=== PATIENT | male | born 1945 | race Caucasian/White ===

== ENCOUNTER 2016-09-17 20:08 | Emergency (ER) | payer MEDICARE ==
[~2016-09-17] VITALS: Ht 175.2 cm; Wt 108.0 kg
[~2016-09-17 20:08] MED LIST: ASPIRIN ADULT L81 MG PO; ASPIRIN CHILDRE81 MG PO; ASPIRIN ENTERIC81 M1 PO; ASPIRIN81 M1 PO; BLOOD PRESSURE MEDS; CLOPIDOGREL BIS75 MG PO; COREG6.25 MG PO; COZAAR100 MG PO; CRESTOR40 MG PO; DAYPRO600 M1 PO; FLEXERIL10 MG PO; GUAIFENESIN DM236 ML PO; HUMULIN R100 U/ML SC; HYDR25T PO; HYDROCODONE BIT1 T11 PO; HYDROXYYZINE PA25 MG PO; IMDUR SA30 MG PO; IMDUR SA60 MG PO; IRON324 M1 PO; ISOSORBIDE DINI30 MG PO; K-TAB10 MEQ PO; LANTUS SOLOS100 U/M1 SC; LANTUS100 U/ML SC; LIPITOR80 MG PO; LOPRESSOR100 MG PO; LOPRESSOR50 M1 PO; MECLIZINE HYD12.5 MG PO; MEDROL DOSEPAK4 MG PO; METOPROLOL SUC100 M1 PO; METOPROLOL SUCC50 M1 PO; MIRALAX POWDER17 G1 PO; MOTRIN800 MG PO; NAPROSYN500 MG PO; NORCO 5-325 TA1 EACH PO; NORFLEX100 MG PO; NOVOLOG FLEX100 U/ML; NOVOLOG FLEX100 U/ML SC; OMEPRAZOLE DR20 MG PO; OMEPRAZOLE20 M1 PO; PLAVIX75 M1 PO; PLAVIX75 MG PO; PROAIR HFA8.5 GM INH; TOBRADEX 0.1%-0.5 ML OPH; TOPROL XL100 MG PO; VICODIN 500 MG-1 TAB PO; ZANAFLEX CAPSULE4 MG PO
[2016-09-17 20:21] VITALS: BP 174/76
[2016-09-17] MEDS ORDERED: NAPROSYN500 MG PO (21:37)
== END 2016-09-17 21:44 | disposition home or self-care (01) ==
LOC: ED 20:08
DX: S70.01XA Contusion of right hip, initial encounter (principal); S20.211A Contusion of right front wall of thorax, initial encounter; R03.0 Elevated blood-pressure reading, without diagnosis of hypertension; I48.92 Unspecified atrial flutter; E11.9 Type 2 diabetes mellitus without complications; I10 Essential (primary) hypertension; Z79.82 Long term (current) use of aspirin; Z98.890 Other specified postprocedural states; Z90.89 Acquired absence of other organs; Z79.899 Other long term (current) drug therapy; W10.9XXA Fall (on) (from) unspecified stairs and steps, initial encounter; Y93.89 Activity, other specified; Y92.89 Other specified places as the place of occurrence of the external cause; Y99.9 Unspecified external cause status

== ENCOUNTER 2017-03-28 19:56 | Emergency (ER) | payer OTHER ==
[~2017-03-28] VITALS: Ht 177.8 cm; Wt 108.9 kg
[2017-03-28 20:17] VITALS: BP 209/93
[2017-03-28 20:42] LABS: BASO # 0.1 10*3/uL (0.0-0.1); BASO % 0.6 % (0.0-1.0); EOS # 0.2 10*3/uL (0.0-0.4); EOS % 2.2 % (1.0-4.0); HEMATOCRIT 46.1 % (42.0-52.0); LYMPH # 4.2 10*3/uL (1.3-4.4); LYMPH % 39.1 % (27.0-41.0); MEAN CELL VOLUME 93.3 fl (80.0-94.0); MEAN CORPUSCULAR HGB 32.4 pg (27.0-31.0); MEAN CORPUSCULAR HGB CONC 34.7 g/dl (33.0-37.0); MEAN PLATELET VOLUME 11.5 fl (9.6-12.3); MONO # 1.1 10*3/uL (0.1-1.0); MONO % 9.9 % (3.0-9.0); NEUT # 5.2 10*3/uL (2.3-7.9); NEUT % 47.7 % (47.0-73.0); PLATELET COUNT AUTOMATED 303 10*3/uL (130-400); RED BLOOD COUNT 4.94 10*6/uL (4.50-5.90); RED CELL DISTRI WIDTH 13.9 % (0-14.5); WHITE BLOOD COUNT 10.8 10*3/uL (4.8-10.8)
[2017-03-28 20:51] LABS: ACT PARTIAL THROMBO TIME 24.3 SECONDS (20.8-31.5)
[2017-03-28 21:00] LABS: CREATININE 1.55 mg/dL (0.70-1.30); POTASSIUM 3.8 mmol/L (3.5-5.1)
== END 2017-03-28 22:41 | disposition home or self-care (01) ==
LOC: ED 19:56
PROVIDERS: Emergency Medicine Emergency Medical Services
DX: S02.2XXA Fracture of nasal bones, initial encounter for closed fracture (principal); S01.112A Laceration without foreign body of left eyelid and periocular area, initial encounter; E11.9 Type 2 diabetes mellitus without complications; I16.1 Hypertensive emergency; F17.200 Nicotine dependence, unspecified, uncomplicated; Z79.899 Other long term (current) drug therapy; Z79.4 Long term (current) use of insulin; W01.198A Fall on same level from slipping, tripping and stumbling with subsequent striking against other object, initial encounter; Y93.89 Activity, other specified; Y92.89 Other specified places as the place of occurrence of the external cause; Y99.8 Other external cause status

== ENCOUNTER 2017-04-01 17:27 | Emergency (ER) | payer OTHER ==
[~2017-04-01] VITALS: Ht 177.8 cm; Wt 108.9 kg
[2017-04-01 18:00] LABS: BASO # 0.1 10*3/uL (0.0-0.1); BASO % 0.5 % (0.0-1.0); EOS # 0.2 10*3/uL (0.0-0.4); HEMATOCRIT 47.9 % (42.0-52.0); HEMOGLOBIN 16.6 g/dl (14.0-18.0); LYMPH # 3.8 10*3/uL (1.3-4.4); LYMPH % 36.8 % (27.0-41.0); MEAN CELL VOLUME 93.9 fl (80.0-94.0); MEAN CORPUSCULAR HGB 32.5 pg (27.0-31.0); MEAN CORPUSCULAR HGB CONC 34.7 g/dl (33.0-37.0); MEAN PLATELET VOLUME 11.5 fl (9.6-12.3); MONO # 0.8 10*3/uL (0.1-1.0); NEUT # 5.4 10*3/uL (2.3-7.9); NEUT % 52.3 % (47.0-73.0); PLATELET COUNT AUTOMATED 314 10*3/uL (130-400); WHITE BLOOD COUNT 10.3 10*3/uL (4.8-10.8)
[2017-04-01 18:11] LABS: BUN 22 mg/dl (7-24); CHLORIDE 98 mmol/L (98-107); CREATININE 1.37 mg/dL (0.70-1.30); POTASSIUM 3.8 mmol/L (3.5-5.1); SODIUM 135 mmol/L (136-145)
[2017-04-01 20:58] VITALS: BP 144/82
== END 2017-04-01 19:39 | disposition short-term general hospital (02) ==
LOC: ED 17:27
PROVIDERS: Emergency Medicine
DX: S00.83XA Contusion of other part of head, initial encounter (principal); R26.89 Other abnormalities of gait and mobility; I48.92 Unspecified atrial flutter; I12.9 Hypertensive chronic kidney disease with stage 1 through stage 4 chronic kidney disease, or unspecified chronic kidney disease; E11.22 Type 2 diabetes mellitus with diabetic chronic kidney disease; N18.9 Chronic kidney disease, unspecified; I25.10 Atherosclerotic heart disease of native coronary artery without angina pectoris; Z98.890 Other specified postprocedural states; Z90.89 Acquired absence of other organs; Z79.899 Other long term (current) drug therapy; Z79.4 Long term (current) use of insulin; Z91.81 History of falling; W18.09XA Striking against other object with subsequent fall, initial encounter; Y93.89 Activity, other specified; Y92.89 Other specified places as the place of occurrence of the external cause; Y99.9 Unspecified external cause status

== ENCOUNTER 2018-11-26 20:53 | Inpatient (IN) | payer OTHER ==
[~2018-11-26] VITALS: Ht 177.8 cm; Wt 103.0 kg
--- NOTE | ~2018-11-26 | EKG ---
[place], [place] ELECTROCARDIOGRAM REPORT NAME: ROCIO CHANDRA UNIT #: [id number] ROOM: 406 DOCTOR: PATRICIA DRAFT REPORT BIRTHDATE: [birth year] [facility] Test Date: 2018-11-26 Test Time: 20:55:30 Pat Name: ROCIO CHANDRA Department: Room: 406 Gender: M Business Administration Professor: : 1945 Requested By: LYDIA MORRISON Order Number: [id number] Reading MD: Keegan Gomez MD Measurements Intervals [place] Rate: 84 P: 55 VT: 193 QRS: 13 QRSD: 98 T: 46 QT: 405 QTc: 479 Interpretive Statements Sinus rhythm Inferior infarct, old Baseline wander in lead(s) V2 Compared to ECG 01/13/2018 18:08:39 No significant changes Electronically Signed On 11-27-2018 14:30:20 PDT by Keegan Gomez MD CM:EKGRPT:ELECTROCARDIOGRAM REPORT [id number] LYDIA COREA DRAFT REPORT LYDIA MORRISON DO
--- NOTE | ~2018-11-26 | EKG ---
[place], [place] ELECTROCARDIOGRAM REPORT NAME: ROCIO CHANDRA UNIT #: [id number] ROOM: 406 DOCTOR: PATRICIA DRAFT REPORT BIRTHDATE: [birth year] [facility] Test Date: 2018-11-27 Test Time: 02:48:53 Pat Name: ROCIO CHANDRA Department: Room: 406 Gender: M Printer Maintainer: Nina Cueva : 1945 Requested By: LYDIA MORRISON Order Number: [id number] Reading MD: Keegan Gomez MD Measurements Intervals [place] Rate: 71 P: 56 MS: 209 QRS: 19 QRSD: 89 T: 147 QT: 400 QTc: 435 Interpretive Statements Sinus rhythm Nonspecific T abnrm, anterolateral leads Baseline wander in lead(s) V2 Compared to ECG 01/13/2018 18:08:39 Myocardial infarct finding no longer present Electronically Signed On 11-27-2018 14:32:21 PDT by Keegan Gomez MD CM:EKGRPT:ELECTROCARDIOGRAM REPORT [id number] 1432 LYDIA COREA DRAFT REPORT LYDIA MORRISON DO
--- NOTE | ~2018-11-26 | EKG ---
[place], [place] ELECTROCARDIOGRAM REPORT NAME: ROCIO CHANDRA UNIT #: [id number] ROOM: 406 DOCTOR: PATRICIA DRAFT REPORT BIRTHDATE: [birth year] [facility] Test Date: 2018-11-26 Test Time: 23:28:48 Pat Name: ROCIO CHANDRA Department: Room: 406 Gender: M Elastic Cutter: Nina Cueva : 1945 Requested By: LYDIA MORRISON Order Number: [id number] Reading MD: Keegan Gomez MD Measurements Intervals [place] Rate: 74 P: 37 MS: 213 QRS: 13 QRSD: 91 T: QT: 418 QTc: 464 Interpretive Statements Sinus rhythm Borderline prolonged MS interval Nonspecific T abnormalities, lateral leads Baseline wander in lead(s) V1,V2 Compared to ECG 01/13/2018 18:08:39 T-wave abnormality now present Myocardial infarct finding no longer present Electronically Signed On 11-27-2018 14:32:04 PDT by Keegan Gomez MD CM:EKGRPT:ELECTROCARDIOGRAM REPORT [id number] 1432 LYDIA COREA DRAFT REPORT LYDIA MORRISON DO
[~2018-11-26 20:53] MED LIST changes: +NOVOLOG FL100 UNIT/2 SC; -NOVOLOG FLEX100 U/ML SC
[2018-11-26 21:01] VITALS: BP 131/61
[2018-11-26 21:12] LABS: BASO # 0.1 10*3/uL (0.0-0.1); BASO % 0.4 % (0.0-1.0); EOS # 0.1 10*3/uL (0.0-0.4); EOS % 0.6 % (1.0-4.0); HEMATOCRIT 44.8 % (42.0-52.0); HEMOGLOBIN 15.3 g/dl (14.0-18.0); LYMPH # 4.5 10*3/uL (1.3-4.4); LYMPH % 32.6 % (27.0-41.0); MEAN CELL VOLUME 92.6 fl (80.0-94.0); MEAN CORPUSCULAR HGB 31.6 pg (27.0-31.0); MEAN CORPUSCULAR HGB CONC 34.2 g/dl (33.0-37.0); MEAN PLATELET VOLUME 11.3 fl (9.6-12.3); MONO # 0.8 10*3/uL (0.1-1.0); MONO % 6.1 % (3.0-9.0); NEUT # 8.2 10*3/uL (2.3-7.9); NEUT % 59.9 % (47.0-73.0); PLATELET COUNT AUTOMATED 370 10*3/uL (130-400); RED BLOOD COUNT 4.84 10*6/uL (4.50-5.90); RED CELL DISTRI WIDTH 14.3 % (0-14.5); WHITE BLOOD COUNT 13.7 10*3/uL (4.8-10.8)
[2018-11-26 21:24] LABS: ACT PARTIAL THROMBO TIME 24.8 SECONDS (20.0-32.1)
[2018-11-26 21:28] LABS: ALBUMIN 3.5 gm/dl (3.1-4.5); ALKALINE PHOSPHATASE 108 U/L (45-117); BUN 25 mg/dl (7-24); CHLORIDE 102 mmol/L (98-107); CREATININE 1.54 mg/dL (0.70-1.30); POTASSIUM 3.5 mmol/L (3.5-5.1); SGOT/AST 19 IU/L (3-35); SGPT/ALT 26 U/L (12-78); SODIUM 134 mmol/L (136-145); TOTAL PROTEIN 8.1 gm/dL (6.4-8.2)
[2018-11-26 21:30] LABS: TROPONIN I < 0.015 ng/ml (<0.045)
[2018-11-26 23:20] VITALS: BP 136/76
[2018-11-27] VITALS: BP 147/80
--- NOTE | 2018-11-27 00:02 | NUR ---
SPOKE WITH DR. MARTINEZ AT THIS TIME PERTAINING TO PATIENT GETTING ENTERIC COATED ASPIRIN NOW VS. CHEWABLE TABLETS. HE STATED TO CHANGE THE NOW DOSE TO CHEWABLE AND THE DAILY DOSE CAN BE ENTERIC
[2018-11-27 03:15] LABS: BASO % 0.3 % (0.0-1.0); EOS # 0.1 10*3/uL (0.0-0.4); EOS % 0.8 % (1.0-4.0); HEMATOCRIT 45.4 % (42.0-52.0); HEMOGLOBIN 15.4 g/dl (14.0-18.0); LYMPH # 3.5 10*3/uL (1.3-4.4); LYMPH % 27.3 % (27.0-41.0); MEAN CELL VOLUME 93.4 fl (80.0-94.0); MEAN CORPUSCULAR HGB 31.7 pg (27.0-31.0); MEAN CORPUSCULAR HGB CONC 33.9 g/dl (33.0-37.0); MEAN PLATELET VOLUME 11.3 fl (9.6-12.3); MONO # 0.8 10*3/uL (0.1-1.0); MONO % 6.2 % (3.0-9.0); NEUT # 8.2 10*3/uL (2.3-7.9); NEUT % 65.1 % (47.0-73.0); PLATELET COUNT AUTOMATED 359 10*3/uL (130-400); RED BLOOD COUNT 4.86 10*6/uL (4.50-5.90); RED CELL DISTRI WIDTH 14.4 % (0-14.5); WHITE BLOOD COUNT 12.6 10*3/uL (4.8-10.8)
[2018-11-27 03:32] LABS: ALBUMIN 3.3 gm/dl (3.1-4.5); CREATININE 1.56 mg/dL (0.70-1.30); PHOSPHOROUS 2.3 mg/dL (2.5-4.9); POTASSIUM 3.3 mmol/L (3.5-5.1); TOTAL PROTEIN 7.8 gm/dL (6.4-8.2)
[2018-11-27 03:38] LABS: THYROID STIM HORMONE (HS) 1.1 uIU/ml (0.358-4.75)
[2018-11-27 03:43] LABS: ACT PARTIAL THROMBO TIME 26.8 SECONDS (20.0-32.1)
--- NOTE | 2018-11-27 04:00 | NUR ---
SLEEPING IN BED. RESP-EASY AND REGULAR. CALL LIGHT IN REACH.
--- NOTE | 2018-11-27 06:25 | NUR ---
CALLED DR. MARTINEZ AWARE PT NEEDS WOUND ORDERS.
--- NOTE | 2018-11-27 06:30 | NUR ---
PT RESTING IN BED. NO C/O AT THIS TIME. CALL LIGHT IN REACH.
[2018-11-27 06:58] LABS: VITAMIN D, 25-HYDROXY 21.2 ng/mL (30-100)
[2018-11-27 08:00] VITALS: BP 138/70
--- NOTE | 2018-11-27 08:00 | NUR ---
CORAZONROCIO L [id number] Please refer to the physician's history and physical for past medical history, comorbid conditions, and allergies. Diagnosis: CHEST PAIN Avinash Score: 18,AT RISK WOUND DESCRIPTIONS: Wound Number: 1 Location of the wound: MIDLINE ABD Type of wound: Thickness: Partial Size: 1.6cm X 1.9cm X 0.1cm Tunneling: NONE Undermining: NONE Sinus Tract: NONE Presence of Exudate: Amount: None Color: Red Odor: None Periwound Skin Appearance: Normal Wound edges: APPROXIMATED Pain (associated with wound): DENIED AT TIME OF ASSESSMENT How does patient state this happened? PATIENT STATES THAT HE HAD SURGERY TEN YEARS AGO AND PICKS AT THIS AREA. Surface the patient is resting on: Isoflex SKIN PREVENTION RECOMMENDATION: 1. Pressure redistribution support surface as appropriate 2. Elevate heels 3. Remove boots/TEDS every shift and reapply 4. Head of bed 30 degrees as tolerated 5. Assess nutrition and hydration 6. Manage moisture 7. Avoid the use of containment devices while in bed 8. Use absorptive products on surfaces limit layers of linens on bed 9. Turn and reposition every 1-2 hours in bed and every 1 hour in chair as tolerated 10. Weight shifts every 15 minutes while up in chair 11. Offloading with pillows or device to keep heels elevated off bed 12. Monitor skin at least every shift 13. Inspect under medical devices twice a day WOUND TREATMENT RECOMMENDATIONS: PARTIAL THICKNESS GUIDELINES TO MIDLINE ABD: CLEANSE WITH NSS APPLY SUREPREP AROUND THE WOUND ALLOW TO DRY APPLY HYDROGEL AND COVER WITH OPTIFOAM GENTLE.
--- NOTE | 2018-11-27 08:03 | NUR ---
PATIENT STATES THAT HE WILL CARE FOR THIS AREA AT HOME WHEN DISCHARGED.
--- NOTE | 2018-11-27 08:16 | NUR ---
OFFICE STAFF WAS NOTIFIED OF DR. MEMBRENO CONSULT. RESPONSE OF NOTIFICATION WAS INFORMATION GIVEN REQUESTED GIVEN TO HILARY IN THE OFFICE. APOORVA JESUS
--- NOTE | 2018-11-27 08:25 | NUR ---
Spoke with regarding home meds. states that some of labels are difficult to read. I called the [place] and sent a request to obtain list of meds, pt signed release.
[2018-11-27] MEDS ORDERED: SERTRALINE HYD100 MG PO (09:17)
[2018-11-27] MEDS ORDERED: LOSARTAN POTASS25 M1 PO (09:18)
[2018-11-27] MEDS ORDERED: VICTOZA 2-0.6 MG/0.1 PO (09:19)
[2018-11-27] MEDS ORDERED: METOPROLOL25 MG PO (09:20)
[2018-11-27] MEDS ORDERED: MELATONIN3 MG PO (09:21)
[2018-11-27] MEDS ORDERED: LIPITOR80 MG PO (09:25)
--- NOTE | 2018-11-27 09:25 | NUR ---
Med rec [facility] along with info provided by .
--- NOTE | 2018-11-27 09:30 | NUR ---
Marycruz Briseno notified that med rec updated.
--- NOTE | 2018-11-27 09:40 | NUR ---
Dr. Gomez was in and saw pt for [facility]. Plan for stress test today. Pt remains NPO.
--- NOTE | 2018-11-27 09:55 | NUR ---
PT taken off floor for stress test. States they will do echo while he is there too.
--- NOTE | 2018-11-27 11:29 | NUR ---
Pt remains in cardiac rehab for stress testing.
--- NOTE | 2018-11-27 11:30 | NUR ---
INFORMED CONSENT SIGNED FOR CARDIOLYTE STRESS TEST WITH DR. ALEJO. RESTING EKG NSR, HR 74, BP 144/68. COMPLETED 3:23 OF A KRISTA PROTOCOL STRESS TEST COMPLETING 3:00 STAGE I, 1.7MPH/10% GRADE. TEST TERMINATED D/T PT C/O DIZZINESS. PT SAT DOWN AND LEXISCAN STRESS TEST DONE. ONE MINUTE LEXISCAN PROTOCOL COMPLETED WITH PT RECEIVING LEXISCAN 0.4MG OVER [address] CHANGES NOTED WITH NO ARRHYTHMIAS. PEAK HEART RATE OF 101 ACHIEVED WHICH IS 68% PREDECTED MAXIMUM AND A PEAK BP OF 136/80. LAST RECOVERY HR 84, BP 136/80. HAS A FAIR EXERCISE TOLERANCE. WAITING NUCLEAR SCANNING IN STABLE CONDITION.
--- NOTE | 2018-11-27 11:58 | NUR ---
Marycruz Briseno DRESS MARKER notified of wound care recommendations.
[2018-11-27 12:00] VITALS: BP 141/60
--- NOTE | 2018-11-27 12:15 | NUR ---
Parole Director in to talk to patient. Patient states lives at HOME with . There are FEW steps in the home. Physician: JUAN CARLOS [facility] [place] Home health services: NONE Patient's level of ADLs: INDEPENDENT Patient has working utilities: YES DME: NO Follow-up physician's appointment after d/c: WILL BE MADE BY HOSPTIALIST NURSE DIRECTOR ON DISCHARGE Does patient want to access PORTAL?: NO Discharge plan PT LIVES AT HOME WITH HIS AND STATES HE IS INDEPENDENT IN HIS CARE. DENIES THAT HE WILL HAVE NEEDS ON DISCHARGE. WILL CONTINUE TO FOLLOW. STATES HE WILL HAVE A RIDE HOME ON DISCHARGE. . DEBORAH LICEA
--- NOTE | 2018-11-27 12:40 | NUR ---
Marycruz Briseno DEBURRER notified of positivie orthostatic BP's.
--- NOTE | 2018-11-27 14:43 | NUR ---
Nutritional Support Services Note: Pt was triggered dt wound. Recommend Glucerna TID to aid in wound healing and improve overall nutritional status. Encouraged DM diet education, but pt refused. Tom Lopez Developer Architect Dietitian
[2018-11-27 16:00] VITALS: BP 139/65
--- NOTE | 2018-11-27 16:03 | NUR ---
Nursing screen received and chart review completed. Patient lives with and was independent in ADLs prior to admission. If patient should have a decline in ADls then refer to OT. However no further OT indicated at this time. Thank you. Denisse Nixon OTR/L
--- NOTE | 2018-11-27 16:13 | NUR ---
PHYSICAL THERAPY Nursing screen received and chart reviewed. Patient lives at home and is independent. Please order PT evaluation if functional status declines. Thank you. Julia Leal,PT,DPT.
--- NOTE | 2018-11-27 17:30 | NUR ---
Dressing applied to umbilicus per orders.
--- NOTE | 2018-11-27 19:30 | NUR ---
PT RESTING IN BED. RESP-EASY AND REGULAR. NO C/O AT THIS TIME. CALL LIGHT IN REACH. SEE SHIFT ASSESSMENT.
[2018-11-27 20:00] VITALS: BP 160/71
--- NOTE | 2018-11-27 22:00 | NUR ---
BSG-230, SEE MEAR. PT REQUESTING HOME MEDICATION. GIVEN. CALL LIGHT IN REACH.
[2018-11-28] VITALS: BP 152/60; BP 161/62
--- NOTE | 2018-11-28 | NUR ---
PT RESTING IN BED. RESP-EASY AND REGULAR. NO C/O AT THIS TIME. CALL LIGHT IN REACH. SEE SHIFT ASSESSMENT.
--- NOTE | 2018-11-28 00:07 | NUR ---
24 HR chart check completed.
--- NOTE | 2018-11-28 04:00 | NUR ---
SLEEPING IN BED. RESP-EASY AND REGULAR. CALL LIGHT IN REACH.
--- NOTE | 2018-11-28 06:00 | NUR ---
PT RESTING IN BED. RESP-EASY AND REGULAR. BSG-174, SEE EMAR. NO C/O AT THIS TIME. CALL LIGHT IN REACH.
[2018-11-28 08:00] VITALS: BP 118/68
--- NOTE | 2018-11-28 11:21 | NUR ---
PT CONTINUES TO STATE HE WILL RETURN HOME WHEN MEDICALLY STABLE WITH NO NEW NEEDS. WILL CONTINUE TO FOLLOW.
--- NOTE | 2018-11-28 11:35 | NUR ---
Ortho's done and Marycruz Briseno CNP notified of results. Ortho's positive and pt c/o dizziness. Plan to keep pt another night.
--- NOTE | 2018-11-28 11:45 | NUR ---
DR. Gomez was up, notified of orthostatic bp results.
[2018-11-28 12:00] VITALS: BP 142/88
[2018-11-28 16:00] VITALS: BP 147/71
--- NOTE | 2018-11-28 20:30 | NUR ---
PT C/O LEFT MIDDLE FINGER PAIN, RATES PAIN 4 ON PAIN SCALE 0-10. MEDICATED WITH TYLENOL PO PER PRN ORDER, SEE EMAR. CALL LIGHT IN REACH. SEE SHIFT ASSESSMENT.
--- NOTE | 2018-11-28 21:00 | NUR ---
BSG-220, EMAR. STATES MEDICATION HELPS. CALL LIGHT IN REACH.
--- NOTE | 2018-11-28 22:23 | NUR ---
24 HR chart check completed.
[2018-11-29] VITALS: BP 160/68
--- NOTE | 2018-11-29 00:10 | NUR ---
PT RESTING IN BED WITH EYES CLOSED. AWAKENS EASILY. RESP-EASY AND REGULAR. NO C/O AT THIS TIME. CALL LIGHT IN REACH. SEE SHIFT ASSESSMENT.
--- NOTE | 2018-11-29 04:00 | NUR ---
SLEEPING IN BED, RESP-EASY AND REGULAR. CALL LIGHT IN REACH.
--- NOTE | 2018-11-29 06:45 | NUR ---
BSG-182, SEE EMAR. NO C/O AT THIS TIME. CALL LIGHT IN REACH.
[2018-11-29 08:00] VITALS: BP 180/72
[2018-11-29] MEDS ORDERED: ASPIRIN ADULT L81 M2 PO (08:55)
[2018-11-29] MEDS ORDERED: VITAMIN D32000 UNI1 PO (08:55)
[2018-11-29] MEDS ORDERED: VASCEPA1 G1 PO (08:55)
--- NOTE | 2018-11-29 10:51 | NUR ---
Discharge instructions reviewed with patient/family. Patient receptive and verbalizes understanding. Follow-up care arranged. Written instructions given to patient/family. XAVIER BILL
--- NOTE | 2018-11-29 11:04 | NUR ---
PT REFUSED DISCHARGE PHOTOS D/T RIDE BEING HERE, TOLD PATIENT I HAD ALL THE SUPPLIES AND IT WOULD ONLY TAKE A FEW MOMENTS PATIENT STILL REFUSED
--- NOTE | 2018-11-29 11:17 | NUR ---
IN TO TALK TO PT. PT REQUEST A CANE. CALLED [facility] IN [facility], CANES ARE $8.99. PT INFORMED AND STATES HE WILL GO GET ONE THERE. NO OTHER NEEDS PER PT. PT CAN BE DISCHARGED TO HOME WHEN MEDICALLY STABLE.
== END 2018-11-29 11:04 | disposition home or self-care (01) | DRG 303 ==
LOC: ED 20:53 → EDHOLD 22:55 → 4E 22:55
PROVIDERS: Internal Medicine; Student in an Organized Health Care Education/Training Program; ADMIT Emergency Medicine
PROC: 3E073KZ Introduction of Other Diagnostic Substance into Coronary Artery, Percutaneous Approach (ICD-10-PCS; principal; 2018-11-27)
PROC: 4A02XM4 Measurement of Cardiac Total Activity, External Approach (ICD-10-PCS; principal; 2018-11-27)
DX: I25.119 Atherosclerotic heart disease of native coronary artery with unspecified angina pectoris (principal); E44.0 Moderate protein-calorie malnutrition; I48.92 Unspecified atrial flutter; I99.8 Other disorder of circulatory system; K21.9 Gastro-esophageal reflux disease without esophagitis; E11.65 Type 2 diabetes mellitus with hyperglycemia; N18.3 Chronic kidney disease, stage 3 (moderate); I12.9 Hypertensive chronic kidney disease with stage 1 through stage 4 chronic kidney disease, or unspecified chronic kidney disease; E78.00 Pure hypercholesterolemia, unspecified; E87.6 Hypokalemia; E55.9 Vitamin D deficiency, unspecified; I95.9 Hypotension, unspecified; R00.1 Bradycardia, unspecified; E78.2 Mixed hyperlipidemia; E11.43 Type 2 diabetes mellitus with diabetic autonomic (poly)neuropathy; E86.0 Dehydration; Z79.4 Long term (current) use of insulin; Z79.899 Other long term (current) drug therapy; Z91.81 History of falling; Z90.81 Acquired absence of spleen; Z85.038 Personal history of other malignant neoplasm of large intestine; Z83.6 Family history of other diseases of the respiratory system; Z80.8 Family history of malignant neoplasm of other organs or systems; Z95.5 Presence of coronary angioplasty implant and graft; Z90.49 Acquired absence of other specified parts of digestive tract; Z95.1 Presence of aortocoronary bypass graft; Z87.891 Personal history of nicotine dependence; Z68.32 Body mass index [BMI] 32.0-32.9, adult

== ENCOUNTER 2020-05-02 17:13 | Inpatient (IN) | payer MEDICARE ==
[~2020-05-02] VITALS: Ht 177.8 cm; Wt 81.4 kg
[~2020-05-02 17:13] MED LIST changes: +ASPIRIN ADULT L81 M2 PO; +LANTUS SOL100 UNIT/1 SC; +LOSARTAN POTASS25 M1 PO; +MELATONIN3 MG PO; +METOPROLOL25 MG PO; +SERTRALINE HYD100 MG PO; +VASCEPA1 G1 PO; +VICTOZA 2-0.6 MG/0.1 PO; +VITAMIN D32000 UNI1 PO
[2020-05-02 17:28] VITALS: BP 193/100
[2020-05-02 17:43] VITALS: BP 192/88
[2020-05-02 18:25] LABS: HEMATOCRIT 48.8 % (42.0-52.0); MEAN CELL VOLUME 94.4 fl (80.0-94.0); MEAN CORPUSCULAR HGB 30.6 pg (27.0-31.0); MEAN CORPUSCULAR HGB CONC 32.4 g/dl (33.0-37.0); MEAN PLATELET VOLUME 11.7 fl (9.6-12.3); PLATELET COUNT AUTOMATED 336 10*3/uL (130-400); RED BLOOD COUNT 5.17 10*6/uL (4.50-5.90); RED CELL DISTRI WIDTH 15.4 % (0-14.5); WHITE BLOOD COUNT 21.6 10*3/uL (4.8-10.8)
[2020-05-02 18:41] LABS: ALBUMIN 3.2 gm/dl (3.1-4.5); CREATININE 1.65 mg/dL (0.70-1.30); POTASSIUM 4.2 mmol/L (3.5-5.1); TOTAL PROTEIN 7.7 gm/dL (6.4-8.2)
[2020-05-02 18:44] LABS: ACT PARTIAL THROMBO TIME 26.2 SECONDS (20.0-32.1)
[2020-05-02 18:57] VITALS: BP 201/94
[2020-05-02 19:01] LABS: BURR CELLS FEW; PLATELET SUFFICIENCY NORMAL (NORMAL); TOTAL CELLS COUNTED 100 #CELLS
[2020-05-02 19:05] LABS: TROPONIN I 0.401 ng/ml (<0.045)
--- NOTE | 2020-05-02 19:12 | NUR ---
CRITICAL LAB TROPONIN 0.401 TEST ENGINEER NOTIFIED
--- NOTE | 2020-05-02 19:12 | NUR ---
Transfer of care from Adam ni.
[2020-05-02 19:15] LABS: BILIRUBIN Negative (Negative); BLOOD 2+ (Negative); CLARITY Clear (Clear); COLOR Yellow (Yellow); GLUCOSE 3+ (Negative); KETONE Negative (Negative); LEUKO ESTERASE Negative (Negative); NITRITE Negative (Negative); SPECIFIC GRAVITY 1.025 (1.001-1.030); UROBILINOGEN 0.2 E.U./dl (0.0-1.0)
[2020-05-02 19:18] VITALS: BP 143/66
[2020-05-02 19:30] LABS: BACTERIA 1+; EPITHELIAL CELLS 0-2; WBC 0-2 wbc/hpf (0-5)
--- NOTE | 2020-05-02 19:50 | NUR ---
Family updated on pt status at this time.
--- NOTE | 2020-05-02 21:16 | NUR ---
Attempted to placed montiel at this time and unable to.Pt states he voids.Pt is alert to self.Pt states he has fallen at home at this time.Pt has mutiple abrashions noted on right and left knee and some on right lower leg.Pt has 20 gauge ac noted with normal saline infusing at this time.
[2020-05-02 22:05] VITALS: BP 133/55
--- NOTE | 2020-05-02 22:06 | NUR ---
Ok to place montiel per Amy tea taster.Montiel 14fr coude placed and yellow urine came back at this time.Pt appears comfortable and turned in bed at this time.
[2020-05-02 22:11] VITALS: BP 120/75
--- NOTE | 2020-05-02 22:12 | NUR ---
aware of critical results at this time.Aware of heart rate into thr 120s.Stated he will order medications at this time and stated he does not want cardiologys number at this time.
--- NOTE | 2020-05-02 23:13 | NUR ---
Jorge to Khadra ni.
[2020-05-03 01:45] VITALS: BP 135/50
[2020-05-03 03:27] LABS: ABG BASE EXCESS -2.4 mmol/L (-2.0-2.0); ARTERIAL BLOOD GAS PH 7.392 (7.35-7.45)
[2020-05-03 05:51] LABS: ALBUMIN 2.8 gm/dl (3.1-4.5); CREATININE 1.74 mg/dL (0.70-1.30); POTASSIUM 4.2 mmol/L (3.5-5.1); TOTAL PROTEIN 7.3 gm/dL (6.4-8.2)
[2020-05-03 05:55] LABS: TROPONIN I 1.03 ng/ml (<0.045)
[2020-05-03 05:56] LABS: THYROID STIM HORMONE (HS) 0.596 uIU/ml (0.358-4.75)
[2020-05-03 06:07] LABS: HEMATOCRIT 44.9 % (42.0-52.0); MEAN CELL VOLUME 95.3 fl (80.0-94.0); MEAN CORPUSCULAR HGB 30.8 pg (27.0-31.0); MEAN CORPUSCULAR HGB CONC 32.3 g/dl (33.0-37.0); MEAN PLATELET VOLUME 12.6 fl (9.6-12.3); NUCLEATED RED BLOOD CELL 0.1 % (0.0-0.0); PLATELET COUNT AUTOMATED 300 10*3/uL (130-400); RED BLOOD COUNT 4.71 10*6/uL (4.50-5.90); RED CELL DISTRI WIDTH 15.7 % (0-14.5); WHITE BLOOD COUNT 28.5 10*3/uL (4.8-10.8)
[2020-05-03 06:38] LABS: FERRITIN 228.4 ng/mL (22.0-322.0)
[2020-05-03 07:08] LABS: TOTAL CELLS COUNTED 100 #CELLS
[2020-05-03 07:09] LABS: BURR CELLS FEW; HOWELL-JOLLY BODIES FEW; PLATELET SUFFICIENCY NORMAL (NORMAL)
[2020-05-03 08:00] VITALS: BP 166/64
--- NOTE | 2020-05-03 08:16 | NUR ---
REPORTS CALLED TO SAIDA.
[2020-05-03 08:57] VITALS: BP 166/64
--- NOTE | 2020-05-03 08:57 | NUR ---
A 75, admitted to 4E, under the services of JEFF Lundberg DO with a diagnosis of NSTEMI. Chief complaint is NAUSEA, VOMITING, SHORTNESS OF BREATH. Patient arrived via bed from ER. Monitor applied. Initial assessment completed. Vital signs taken and recorded. JEFF LUNDBERG DO notified of admission to the unit. Orders received. See assessment for past medical history, medications and allergies. Patient and/or family oriented to unit. visitation policy reviewed. Clothing/patient valuable form completed. CARLY VILLARREAL
--- NOTE | 2020-05-03 09:19 | NUR ---
Paint Grinder [employer] SPOKE WITH PATIENT VIA PHONE CALL Patient states lives at HOME with . There are 10-15 steps in the home. Physician: JUAN CARLOS [facility]: [facility] [place] Home health services: NONE Patient's level of ADLs: INDEPENDENT Patient has working utilities: YES DME: NO Follow-up physician's appointment after d/c: WILL BE MADE BY HOSPTIALIST NURSE DIRECTOR ON DISCHARGE Does patient want to access PORTAL?: NO Discharge plan PT LIVES AT HOME WITH HIS AND STATES HE IS INDEPENDENT IN HIS CARE. DENIES THAT HE WILL HAVE NEEDS ON DISCHARGE. PATIENT IS CURRENTLY ON 2L OF OXYGEN AT THIS TIME. PATIENT DOES NOT HAVE ANY OXYGEN AT HOME. PATIENT STATES HIS NEIGHBOR WILL TRANSPORT AT DISCHARGE. CASE MANAGMENT TO FOLLOW. DANN KNOTT
--- NOTE | 2020-05-03 10:07 | NUR ---
NOTIFIED DR VU OF PT HEMATURIA IN NEWSOME BAG, STATES HE WILL BE UP TO ASSESS.
--- NOTE | 2020-05-03 11:50 | NUR ---
CATHETER REMOVED PER ORDER, BALLOON INTACT UPON REMOVAL. CALL LIGHT WITHIN REACH. 800 ML OF URINE, RED/TEA COLORED.
[2020-05-03 12:00] VITALS: BP 168/78
--- NOTE | 2020-05-03 12:00 | NUR ---
PT IV HEPARIN RUNNING PER PROTOCOL TO L HAND IV SITE. ASYMPTOMATIC.
[2020-05-03 16:00] VITALS: BP 173/78
--- NOTE | 2020-05-03 16:00 | NUR ---
IV HEPARIN RUNNING AT 13.444 ML/HR PER PROTOCOL. PT TOLERATING WELL, DENIES CHEST PAIN/PRESSURE AT THIS TIME.
[2020-05-03 20:00] VITALS: BP 158/73
--- NOTE | 2020-05-03 23:00 | NUR ---
24 HR chart check completed.
[2020-05-04] VITALS: BP 165/76
[2020-05-04 06:05] LABS: ALBUMIN 2.6 gm/dl (3.1-4.5); CREATININE 1.59 mg/dL (0.70-1.30); POTASSIUM 4.5 mmol/L (3.5-5.1); TOTAL PROTEIN 6.8 gm/dL (6.4-8.2)
[2020-05-04 06:07] LABS: MEAN CELL VOLUME 94.7 fl (80.0-94.0); MEAN CORPUSCULAR HGB 30.6 pg (27.0-31.0); MEAN CORPUSCULAR HGB CONC 32.3 g/dl (33.0-37.0); MEAN PLATELET VOLUME 12.2 fl (9.6-12.3); PLATELET COUNT AUTOMATED 291 10*3/uL (130-400); RED BLOOD COUNT 4.54 10*6/uL (4.50-5.90); RED CELL DISTRI WIDTH 15.6 % (0-14.5); WHITE BLOOD COUNT 20.9 10*3/uL (4.8-10.8)
[2020-05-04 06:36] LABS: TOTAL CELLS COUNTED 100 #CELLS
[2020-05-04 06:37] LABS: BURR CELLS FEW; PLATELET SUFFICIENCY NORMAL (NORMAL); POLYCHROMASIA SLIGHT; SCHISTOCYTES FEW; TARGET CELLS FEW
[2020-05-04 08:00] VITALS: BP 178/87
[2020-05-04 12:00] VITALS: BP 169/76
[2020-05-04 16:00] VITALS: BP 177/76
--- NOTE | 2020-05-04 16:31 | NUR ---
DR. VU NOTIFIED OF PATIENT'S 1600 BLOOD PRESSURE.
[2020-05-04 20:00] VITALS: BP 185/81
[2020-05-05] VITALS: BP 168/63
--- NOTE | 2020-05-05 | NUR ---
PATIENT RESTING IN BED WITH NO NEEDS MADE. HEPARIN INFUSING PER ORDER. BED IN LOW POSITION, CALL LIGHT IN REACH
--- NOTE | 2020-05-05 05:58 | NUR ---
PATIENT RESTING IN BED WITH NO S/S OF DISTRESS. BED IN LOWEST POSITION, CALL LIGHT IN REACH
[2020-05-05 06:22] LABS: ACT PARTIAL THROMBO TIME 48.6 SECONDS (20.0-32.1)
--- NOTE | 2020-05-05 06:29 | NUR ---
NO CHANGE TO HEPARIN DRIP PER POLICY
--- NOTE | 2020-05-05 07:00 | NUR ---
ARRIVED ON SHIFT, REPORT RECEIVED FROM OFF GOING NURSE, ASSUMED CARE OF PATIENT,
[2020-05-05 08:00] VITALS: BP 190/90
--- NOTE | 2020-05-05 08:00 | NUR ---
INTRODUCED SELF TO PATIENT, BED IN LOW POSITION, WHEEL LOCKS ENGAGED, SIDE RAILS UP X 2 FOR TURNING AND REPOSITIONING, NO NEEDS VOICED AT THIS TIME, WHITE BOARD UPDATED, CALL LIGHT WITHIN REACH.
--- NOTE | 2020-05-05 08:47 | NUR ---
CALL PLACED TO DR. VU TO ADVISE OF ELEVATED MANUAL BP OF 190/90 ORDER RECEIVED FOR 10MG IV LABATELOL
--- NOTE | 2020-05-05 08:55 | NUR ---
Shift chart check completed.
--- NOTE | 2020-05-05 10:30 | NUR ---
CALL PLACED TO DR. MIRANDA OFFICE TO NOTIFY THAT PATIENT IS COVID -19 NEGATIVE AND ASK IF HE CAN BE TAKEN OUT OF ISOLATION, LEFT VOICEMAIL FOR CALL BACK.
[2020-05-05 12:00] VITALS: BP 132/75
[2020-05-05 16:00] VITALS: BP 146/71
--- NOTE | 2020-05-05 16:20 | NUR ---
CALL PLACED TO DR. SMITH'S OFFICE TO FOLLOW UP TRAFFIC ENUMERATOR MADE EARLIER TODAY, IN WHICH I HAVE NOT HEARD BACK, SPOKE WITH RACNHO SHE VERSED SHE WILL LET KNOW.
--- NOTE | 2020-05-05 16:29 | NUR ---
DR. SMITH HERE SHE VERSED PATIENT CAN BE REMOVED FROM ISOLATION. NOTIFIED FACTORY CLERK
[2020-05-05 20:00] VITALS: BP 152/63
--- NOTE | 2020-05-05 23:12 | NUR ---
PATIENT IV ACCIDENTALLY RIPPED OUT. NOTIFIED PATIENT THAT WE HAD TO START ANOTHER ONE. PATIENT OPTED TO WAIT UNTIL LATER. EXPLAINED TO PATIENT THAT HE WILL HAVE AN ANTIBIOTIC DUE AROUND 3. HE STATED OK THAT'S FINE, WE CAN DO THE IV THEN BUT THAT HE WANTS TO GET SOME REST
[2020-05-06] VITALS: BP 168/64; BP 180/52
--- NOTE | 2020-05-06 02:41 | NUR ---
24 HR chart check completed.
[2020-05-06 06:15] LABS: BASO # 0.1 10*3/uL (0.0-0.1); BASO % 0.3 % (0.0-1.0); EOS # 0.1 10*3/uL (0.0-0.4); EOS % 0.3 % (1.0-4.0); HEMATOCRIT 47.8 % (42.0-52.0); LYMPH # 3.9 10*3/uL (1.3-4.4); LYMPH % 20.5 % (27.0-41.0); MEAN CELL VOLUME 95.4 fl (80.0-94.0); MEAN CORPUSCULAR HGB 30.7 pg (27.0-31.0); MEAN CORPUSCULAR HGB CONC 32.2 g/dl (33.0-37.0); MONO # 1.3 10*3/uL (0.1-1.0); NEUT # 13.3 10*3/uL (2.3-7.9); NEUT % 70.6 % (47.0-73.0); NUCLEATED RED BLOOD CELL 0.2 % (0.0-0.0); PLATELET COUNT AUTOMATED 322 10*3/uL (130-400); RED BLOOD COUNT 5.01 10*6/uL (4.50-5.90); RED CELL DISTRI WIDTH 15.2 % (0-14.5); WHITE BLOOD COUNT 18.9 10*3/uL (4.8-10.8)
[2020-05-06 06:43] LABS: POTASSIUM 4.1 mmol/L (3.5-5.1)
--- NOTE | 2020-05-06 06:54 | NUR ---
DRIP AT THIS TIME TURNED OFF FOR ONE HOUR PER PROTOCOL.
--- NOTE | 2020-05-06 07:00 | NUR ---
ARRIVED ON SHIFT, REPORT RECEIVED FROM OFFGOING NURSE, ASSUMED CARE OF PATIENT.
[2020-05-06 07:07] LABS: CREATININE 1.57 mg/dL (0.70-1.30)
--- NOTE | 2020-05-06 07:30 | NUR ---
INTRODUCED SELF TO PATIENT, BED IN LOW POSITION WITH WHEEL LOCKS ENGAGED, SIDE RAILS UP X 2 FOR TURNING AND REPOSITIONING, CALL LIGHT WITHIN REACH, NO NEEDS VOICED AT THIS TIME, WHITE BOARD UPDATED.
--- NOTE | 2020-05-06 07:30 | NUR ---
CALL PLACED TO DR. LEVINE PATIENTS BS 160, HE IS NPO AND IS DUE FOR SS SCALE WELL LANTUS 80 UNITS, ADVISED TO HOLD FOR NOW AND RECHECK BS EVERY TWO HOURS UNTIL STRESS TEST.
--- NOTE | 2020-05-06 07:50 | NUR ---
Shift chart check completed.
[2020-05-06 08:00] VITALS: BP 160/86
--- NOTE | 2020-05-06 11:30 | NUR ---
INFORMED CONSENT OBTAINED FOR LEXISCAN NUCLEAR STRESS TEST WITH DR. MEMBRENO. RESTING EKG NSR WITH A RESTING HR OF 65 WITH BP OF 100/68. LUNGS CLEAR WITH SPO2 OF 95% ON ROOM AIR. PT COMPLETED A 1:00 LEXISCAN PROTOCOL RECEIVING LEXISCAN 0.4 MG IV OVER 10 SECONDS. HAD NO CHEST PAIN OR ANY EKG CHANGES. DID C/O "WEIRD FEELING" THAT SUBSIDED IN RECOVERY. HAD A PEAK HR OF 74 WITH BP OF 94/56. LAST RECOVERY HR OF 72 WITH BP OF 102/70. AWAITING SCANNING IN STABLE CONDITION.
--- NOTE | 2020-05-06 13:21 | NUR ---
CALL CENTER ASSISTANT SPOKE WITH PATIENT VIA PHONE. PATIENT STATES HE WANTS TO GO HOME AND WOULD LIKE HOME HEALTH. PATIENT DID NOT HAVE A PREFERENCE. HOME HEALTH WILL BE ARRANGED PRIOR TO PATIENT DISCHARGED. PATIENT IS ALSO ON 2L OXYGEN STILL AND DOES NOT HAVE ANY AT HOME. PT/OT HAS BEEN ORDERED, NO EVALS ARE IN AT THIS TIME.
--- NOTE | 2020-05-06 14:42 | NUR ---
Occupational Therapy evaluation completed on four with full evaluation to follow. Recommend occupational therapy per plan of care and SNF. If refused, home with with 22/11 supervision assistance and a first floor set-up with a BSC to maximize patient safety and independence upon discharge. Thank you for this referral. Char Flores, OTR/L
--- NOTE | 2020-05-06 14:46 | NUR ---
RECEIVED CALL FROM LAB WITH APTT OF 71.2 PER PROTICOL NO CHANGE IN HEPARIN DRIP.
[2020-05-06] MEDS ORDERED: AMLODIPINE BESYL5 MG PO (15:35)
[2020-05-06] MEDS ORDERED: LOSARTAN POTASS50 M1 PO ×2 (15:35)
[2020-05-06] MEDS ORDERED: AVPAK AZITHROM250 MG PO (15:36)
--- NOTE | 2020-05-06 15:36 | NUR ---
PATIENTS BP 178/[address] LEVINE
--- NOTE | 2020-05-06 15:53 | NUR ---
PHYSICAL THERAPY Physical Therapy evaluation completed. Full details and evaluation to follow. Moderate complexity skilled PT evaluation performed 26201. PT will work on strength, balance, gait, AD usage and safety per POC. Recommend SNF at discharge. Michelle Pierre PT DPT
[2020-05-06 16:00] VITALS: BP 178/92
--- NOTE | 2020-05-06 18:08 | NUR ---
RECHECKED PTS BP, IT WAS 138/68 DR. LEVINE NOTIFIED.
[2020-05-06 20:00] VITALS: BP 133/67
[2020-05-07] VITALS: BP 140/72
[2020-05-07 06:14] LABS: BASO # 0.1 10*3/uL (0.0-0.1); BASO % 0.4 % (0.0-1.0); EOS # 0.3 10*3/uL (0.0-0.4); EOS % 1.8 % (1.0-4.0); HEMATOCRIT 50.5 % (42.0-52.0); LYMPH # 4.2 10*3/uL (1.3-4.4); LYMPH % 29.3 % (27.0-41.0); MEAN CELL VOLUME 93.2 fl (80.0-94.0); MEAN CORPUSCULAR HGB 30.1 pg (27.0-31.0); MEAN CORPUSCULAR HGB CONC 32.3 g/dl (33.0-37.0); MEAN PLATELET VOLUME 11.6 fl (9.6-12.3); MONO # 1.3 10*3/uL (0.1-1.0); MONO % 9.4 % (3.0-9.0); NEUT # 8.1 10*3/uL (2.3-7.9); NEUT % 57.2 % (47.0-73.0); NUCLEATED RED BLOOD CELL 0.2 % (0.0-0.0); PLATELET COUNT AUTOMATED 334 10*3/uL (130-400); RED BLOOD COUNT 5.42 10*6/uL (4.50-5.90); RED CELL DISTRI WIDTH 15.5 % (0-14.5); WHITE BLOOD COUNT 14.2 10*3/uL (4.8-10.8)
[2020-05-07 06:18] LABS: BUN 35 mg/dl (7-24); CHLORIDE 108 mmol/L (98-107); CREATININE 1.38 mg/dL (0.70-1.30); POTASSIUM 4.1 mmol/L (3.5-5.1); SODIUM 139 mmol/L (136-145)
--- NOTE | 2020-05-07 07:00 | NUR ---
ARRIVED ON SHIFT, REPORT RECEIVED FROM OFFGOING NURSE, ASSUMED CARE OF PATIENT.
--- NOTE | 2020-05-07 07:30 | NUR ---
INTRODUCED SELF TO PATIENT BED IN LOW POSITION, WHEEL LOCKS ENGAGED, SIDE RAILS UP X 2 FOR TURNING AND REPOSITIONING, CALL LIGHT WITHIN REACH NO NEEDS VOICED AT THIS TIME.
[2020-05-07 08:00] VITALS: BP 159/80; BP 168/70
--- NOTE | 2020-05-07 08:00 | NUR ---
CALL PLACED TO HOSPITALIST LINE, SPOKE TO DR. BROOKS TO ASK ABOUT IF PATIENT SHOULD GET HIS LANTUS 80UNITS, HE WILL LET
--- NOTE | 2020-05-07 08:10 | NUR ---
DR. BROOKS UP TO FLOOR HE REVIEWEDD BLOOD SUGARS ADVISED TO HOLD THIS DOSE AND USE SLIDING SCALE
--- NOTE | 2020-05-07 08:29 | NUR ---
[employer] FAXED REFERRAL TO [facility] WITH FACE TO FACE.
[2020-05-07] MEDS ORDERED: COZAAR100 MG PO (09:58)
--- NOTE | 2020-05-07 11:59 | NUR ---
METAL REED TUNER FAXED DISCHARGE ORDERS TO [facility].
--- NOTE | 2020-05-07 13:30 | NUR ---
Discharge instructions reviewed with patient. Patient receptive and verbalizes understanding. Follow-up care arranged. Written instructions given to patient, IVS REMOVED, TELEMETRY ACCOUNTED FOR, TAKEN OUT VIA W/C BY HOSPITAL STAFF. DWAIN SADLER
== END 2020-05-07 13:30 | disposition home or self-care (01) | DRG 871 ==
LOC: ED → EDHOLD 23:07 → 4E 23:07
PROVIDERS: Emergency Medicine; Hospitalist; Internal Medicine; Internal Medicine Critical Care Medicine; Nurse Practitioner Family; ADMIT Internal Medicine; ATTEND Internal Medicine
PROC: 4A02XM4 Measurement of Cardiac Total Activity, External Approach (ICD-10-PCS; principal; 2020-05-06)
PROC: 3E073KZ Introduction of Other Diagnostic Substance into Coronary Artery, Percutaneous Approach (ICD-10-PCS; 2020-05-06)
DX: A41.9 Sepsis, unspecified organism (principal); J18.9 Pneumonia, unspecified organism; I21.4 Non-ST elevation (NSTEMI) myocardial infarction; J96.01 Acute respiratory failure with hypoxia; E44.0 Moderate protein-calorie malnutrition; I48.92 Unspecified atrial flutter; I16.1 Hypertensive emergency; N17.9 Acute kidney failure, unspecified; E11.22 Type 2 diabetes mellitus with diabetic chronic kidney disease; I25.10 Atherosclerotic heart disease of native coronary artery without angina pectoris; I12.9 Hypertensive chronic kidney disease with stage 1 through stage 4 chronic kidney disease, or unspecified chronic kidney disease; N18.31 Chronic kidney disease, stage 3a; E11.65 Type 2 diabetes mellitus with hyperglycemia; R31.0 Gross hematuria; R65.20 Severe sepsis without septic shock; Z68.36 Body mass index [BMI] 36.0-36.9, adult; Z95.5 Presence of coronary angioplasty implant and graft; Z95.1 Presence of aortocoronary bypass graft; Z79.82 Long term (current) use of aspirin; Z79.4 Long term (current) use of insulin; Z79.899 Other long term (current) drug therapy; Z82.5 Family history of asthma and other chronic lower respiratory diseases; Z20.822 Contact with and (suspected) exposure to COVID-19

== ENCOUNTER 2020-06-27 17:10 | Emergency (ER) | payer MEDICARE ==
[~2020-06-27 17:10] MED LIST changes: +AMLODIPINE BESYL5 MG PO; +AVPAK AZITHROM250 MG PO; +LOSARTAN POTASS50 M1 PO
[2020-06-27 17:11] VITALS: BP 189/72
[2020-06-27] MEDS ORDERED: PREDNISONE20 M1 PO (19:28)
[2020-06-27] MEDS ORDERED: ROBAXIN-750750 MG PO (19:30)
== END 2020-06-27 19:32 | disposition home or self-care (01) ==
LOC: ED 17:10
DX: S39.012A Strain of muscle, fascia and tendon of lower back, initial encounter (principal); Z79.82 Long term (current) use of aspirin; Z79.899 Other long term (current) drug therapy; Z79.4 Long term (current) use of insulin; Z98.890 Other specified postprocedural states; Z95.818 Presence of other cardiac implants and grafts; X58.XXXA Exposure to other specified factors, initial encounter; Y93.89 Activity, other specified; Y92.89 Other specified places as the place of occurrence of the external cause; Y99.8 Other external cause status

== ENCOUNTER 2020-08-27 16:40 | Inpatient (IN) | payer MEDICARE ==
[~2020-08-27] VITALS: Ht 175.2 cm; Wt 113.9 kg
[~2020-08-27 16:40] MED LIST changes: +PREDNISONE20 M1 PO; +ROBAXIN-750750 MG PO
[2020-08-27 17:19] LABS: HEMATOCRIT 41.3 % (42.0-52.0); MEAN CELL VOLUME 94.3 fl (80.0-94.0); MEAN CORPUSCULAR HGB 31.3 pg (27.0-31.0); MEAN CORPUSCULAR HGB CONC 33.2 g/dl (33.0-37.0); MEAN PLATELET VOLUME 11.6 fl (9.6-12.3); PLATELET COUNT AUTOMATED 331 10*3/uL (130-400); RED BLOOD COUNT 4.38 10*6/uL (4.50-5.90); RED CELL DISTRI WIDTH 14.8 % (0-14.5); WHITE BLOOD COUNT 14.9 10*3/uL (4.8-10.8)
[2020-08-27 17:32] VITALS: BP 146/55
[2020-08-27 17:37] LABS: ALBUMIN 2.5 gm/dl (3.1-4.5); ALKALINE PHOSPHATASE 90 U/L (45-117); BUN 33 mg/dl (7-24); CHLORIDE 104 mmol/L (98-107); CREATININE 1.61 mg/dL (0.70-1.30); POTASSIUM 3.8 mmol/L (3.5-5.1); SGOT/AST 35 IU/L (3-35); SGPT/ALT 37 U/L (12-78); SODIUM 136 mmol/L (136-145); TROPONIN I < 0.015 ng/ml (<0.045)
[2020-08-27 17:44] LABS: BURR CELLS FEW; PLATELET SUFFICIENCY NORMAL (NORMAL); SCHISTOCYTES FEW; TOTAL CELLS COUNTED 100 #CELLS
[2020-08-27 17:46] LABS: ACT PARTIAL THROMBO TIME 30.8 SECONDS (20.0-32.1)
[2020-08-27 20:50] VITALS: BP 167/78
[2020-08-27 21:27] VITALS: BP 135/64; BP 155/64
[2020-08-27 23:02] LABS: BILIRUBIN Negative (Negative); BLOOD 1+ (Negative); CLARITY Clear (Clear); COLOR Yellow (Yellow); GLUCOSE Negative (Negative); KETONE Negative (Negative); LEUKO ESTERASE Negative (Negative); NITRITE Negative (Negative)
[2020-08-27 23:09] LABS: BACTERIA TRACE
[2020-08-27 23:51] VITALS: BP 187/65
[2020-08-28] VITALS (7 sets, daily range): BP systolic 162–220; BP diastolic 72–110
[2020-08-28 06:17] LABS: CREATININE 1.45 mg/dL (0.70-1.30); POTASSIUM 3.6 mmol/L (3.5-5.1)
[2020-08-28 06:22] LABS: HEMATOCRIT 46.6 % (42.0-52.0); MEAN CELL VOLUME 96.7 fl (80.0-94.0); MEAN CORPUSCULAR HGB 31.3 pg (27.0-31.0); MEAN CORPUSCULAR HGB CONC 32.4 g/dl (33.0-37.0); MEAN PLATELET VOLUME 11.8 fl (9.6-12.3); PLATELET COUNT AUTOMATED 351 10*3/uL (130-400); RED BLOOD COUNT 4.82 10*6/uL (4.50-5.90); RED CELL DISTRI WIDTH 14.9 % (0-14.5); WHITE BLOOD COUNT 13.6 10*3/uL (4.8-10.8)
[2020-08-28 06:34] LABS: THYROID STIM HORMONE (HS) 0.681 uIU/ml (0.358-4.75)
[2020-08-28 07:10] LABS: ATYPICAL LYMPHS 1 % (0-0); BASOPHILS 1 % (0-1); PLATELET SUFFICIENCY NORMAL (NORMAL); TOTAL CELLS COUNTED 100 #CELLS
[2020-08-28 07:11] LABS: BURR CELLS FEW; POLYCHROMASIA SLIGHT; SCHISTOCYTES FEW
[2020-08-28] MEDS ORDERED: FISH OIL 1,0001 EAC6 PO (14:19)
[2020-08-28] MEDS ORDERED: PRILOSEC20 M1 PO (14:20)
[2020-08-28] MEDS ORDERED: AMARYL4 MG PO (14:20)
[2020-08-29] VITALS: BP 200/86
[2020-08-29 06:03] LABS: BUN 18 mg/dl (7-24); CHLORIDE 107 mmol/L (98-107); CREATININE 1.32 mg/dL (0.70-1.30); POTASSIUM 4.3 mmol/L (3.5-5.1); SODIUM 137 mmol/L (136-145)
[2020-08-29 06:50] LABS: BASO % 0.3 % (0.0-1.0); EOS % 0.1 % (1.0-4.0); HEMATOCRIT 46.1 % (42.0-52.0); LYMPH # 2.4 10*3/uL (1.3-4.4); LYMPH % 15.4 % (27.0-41.0); MEAN CELL VOLUME 94.1 fl (80.0-94.0); MEAN PLATELET VOLUME 11.6 fl (9.6-12.3); MONO # 0.6 10*3/uL (0.1-1.0); MONO % 3.5 % (3.0-9.0); NEUT # 12.7 10*3/uL (2.3-7.9); NEUT % 79.6 % (47.0-73.0); PLATELET COUNT AUTOMATED 412 10*3/uL (130-400); RED CELL DISTRI WIDTH 14.7 % (0-14.5); WHITE BLOOD COUNT 15.9 10*3/uL (4.8-10.8)
[2020-08-29 08:00] VITALS: BP 186/81
[2020-08-29] MEDS ORDERED: XARELTO10 MG PO (10:57)
[2020-08-29 12:00] VITALS: BP 180/74
[2020-08-29 16:00] VITALS: BP 181/75
[2020-08-29 20:00] VITALS: BP 196/75
[2020-08-30 06:35] LABS: BASO # 0.1 10*3/uL (0.0-0.1); BASO % 0.7 % (0.0-1.0); EOS # 0.4 10*3/uL (0.0-0.4); EOS % 2.7 % (1.0-4.0); HEMATOCRIT 45.6 % (42.0-52.0); LYMPH # 4.3 10*3/uL (1.3-4.4); LYMPH % 32.5 % (27.0-41.0); MEAN CELL VOLUME 92.9 fl (80.0-94.0); MEAN CORPUSCULAR HGB CONC 33.3 g/dl (33.0-37.0); MEAN PLATELET VOLUME 11.7 fl (9.6-12.3); MONO # 1.2 10*3/uL (0.1-1.0); MONO % 9.1 % (3.0-9.0); NEUT # 7.2 10*3/uL (2.3-7.9); PLATELET COUNT AUTOMATED 468 10*3/uL (130-400); RED BLOOD COUNT 4.91 10*6/uL (4.50-5.90); RED CELL DISTRI WIDTH 14.6 % (0-14.5); WHITE BLOOD COUNT 13.4 10*3/uL (4.8-10.8)
[2020-08-30 06:48] LABS: CREATININE 1.41 mg/dL (0.70-1.30)
[2020-08-30 08:00] VITALS: BP 168/62
[2020-08-30 11:07] LABS: ACID FAST SPEC PROCESSING Tissue Grinding (.)
[2020-08-30 12:00] VITALS: BP 168/64
[2020-08-30 16:00] VITALS: BP 183/72
[2020-08-30 20:00] VITALS: BP 190/80
[2020-08-30 23:58] VITALS: BP 185/74
[2020-08-31 05:30] VITALS: BP 162/76
[2020-08-31 06:40] LABS: BASO # 0.1 10*3/uL (0.0-0.1); BASO % 0.9 % (0.0-1.0); EOS # 0.4 10*3/uL (0.0-0.4); EOS % 3.7 % (1.0-4.0); HEMATOCRIT 45.5 % (42.0-52.0); LYMPH # 3.6 10*3/uL (1.3-4.4); LYMPH % 33.3 % (27.0-41.0); MEAN CELL VOLUME 93.4 fl (80.0-94.0); MEAN CORPUSCULAR HGB 31.4 pg (27.0-31.0); MEAN CORPUSCULAR HGB CONC 33.6 g/dl (33.0-37.0); MEAN PLATELET VOLUME 11.2 fl (9.6-12.3); MONO # 0.9 10*3/uL (0.1-1.0); MONO % 8.8 % (3.0-9.0); NEUT # 5.6 10*3/uL (2.3-7.9); NEUT % 52.1 % (47.0-73.0); PLATELET COUNT AUTOMATED 488 10*3/uL (130-400); RED BLOOD COUNT 4.87 10*6/uL (4.50-5.90); RED CELL DISTRI WIDTH 14.8 % (0-14.5); WHITE BLOOD COUNT 10.7 10*3/uL (4.8-10.8)
[2020-08-31 07:05] LABS: ALBUMIN 2.4 gm/dl (3.1-4.5); CREATININE 1.42 mg/dL (0.70-1.30); POTASSIUM 3.8 mmol/L (3.5-5.1)
[2020-08-31 08:00] VITALS: BP 141/78
[2020-08-31 12:00] VITALS: BP 177/72
[2020-08-31 16:00] VITALS: BP 146/80; BP 161/64
[2020-08-31 20:00] VITALS: BP 191/79
[2020-09-01] VITALS: BP 171/70
[2020-09-01 07:39] VITALS: BP 90/60
[2020-09-01 08:15] VITALS: BP 120/70
[2020-09-01 12:00] VITALS: BP 190/76
[2020-09-01 12:21] VITALS: BP 178/78
[2020-09-01] MEDS ORDERED: HYDROCODONE-AC1 EAC1 PO (14:43)
[2020-09-01] MEDS ORDERED: AMLODIPINE BESY10 MG PO (14:43)
[2020-09-01] MEDS ORDERED: NAFCILLIN2 GM IJ (14:46)
[2020-09-01] MEDS ORDERED: CEFTRIAXON2 GM/50 ML IV (14:46)
== END 2020-09-01 15:45 | DRG 622 ==
LOC: ED 16:40 → EDHOLD 18:04 → 4E 18:04
PROVIDERS: Emergency Medicine; Podiatrist; Podiatrist Foot & Ankle Surgery; Student in an Organized Health Care Education/Training Program; ADMIT Internal Medicine; ATTEND Internal Medicine
PROC: 0QBQ0ZZ Excision of Right Toe Phalanx, Open Approach (ICD-10-PCS; principal; 2020-08-28)
PROC: 0JBQ0ZZ Excision of Right Foot Subcutaneous Tissue and Fascia, Open Approach (ICD-10-PCS; 2020-08-28)
PROC: 0QBQ0ZZ Excision of Right Toe Phalanx, Open Approach (ICD-10-PCS; 2020-08-28)
PROC: 0QBQ0ZX Excision of Right Toe Phalanx, Open Approach, Diagnostic (ICD-10-PCS; 2020-08-28)
PROC: 0QBQ0ZX Excision of Right Toe Phalanx, Open Approach, Diagnostic (ICD-10-PCS; 2020-08-28)
PROC: 0QBN0ZZ Excision of Right Metatarsal, Open Approach (ICD-10-PCS; 2020-08-28)
PROC: 0QBN0ZX Excision of Right Metatarsal, Open Approach, Diagnostic (ICD-10-PCS; 2020-08-28)
PROC: 0JBQ0ZX Excision of Right Foot Subcutaneous Tissue and Fascia, Open Approach, Diagnostic (ICD-10-PCS; 2020-08-28)
PROC: 02HV33Z Insertion of Infusion Device into Superior Vena Cava, Percutaneous Approach (ICD-10-PCS; 2020-09-01)
PROC: B518ZZA Fluoroscopy of Superior Vena Cava, Guidance (ICD-10-PCS; 2020-09-01)
DX: E11.69 Type 2 diabetes mellitus with other specified complication (principal); A48.0 Gas gangrene; E44.0 Moderate protein-calorie malnutrition; I48.92 Unspecified atrial flutter; I25.810 Atherosclerosis of coronary artery bypass graft(s) without angina pectoris; E11.52 Type 2 diabetes mellitus with diabetic peripheral angiopathy with gangrene; M86.171 Other acute osteomyelitis, right ankle and foot; L02.611 Cutaneous abscess of right foot; N17.0 Acute kidney failure with tubular necrosis; L03.031 Cellulitis of right toe; E11.649 Type 2 diabetes mellitus with hypoglycemia without coma; E55.9 Vitamin D deficiency, unspecified; I12.9 Hypertensive chronic kidney disease with stage 1 through stage 4 chronic kidney disease, or unspecified chronic kidney disease; E11.22 Type 2 diabetes mellitus with diabetic chronic kidney disease; N18.30 Chronic kidney disease, stage 3 unspecified; E11.42 Type 2 diabetes mellitus with diabetic polyneuropathy; R00.1 Bradycardia, unspecified; E11.621 Type 2 diabetes mellitus with foot ulcer; L97.519 Non-pressure chronic ulcer of other part of right foot with unspecified severity; E87.8 Other disorders of electrolyte and fluid balance, not elsewhere classified; B96.20 Unspecified Escherichia coli [E. coli] as the cause of diseases classified elsewhere; B95.61 Methicillin susceptible Staphylococcus aureus infection as the cause of diseases classified elsewhere; D53.9 Nutritional anemia, unspecified; Z79.4 Long term (current) use of insulin; Z95.1 Presence of aortocoronary bypass graft; Z87.01 Personal history of pneumonia (recurrent); Z85.038 Personal history of other malignant neoplasm of large intestine; I25.2 Old myocardial infarction; Z95.5 Presence of coronary angioplasty implant and graft; Z80.6 Family history of leukemia; Z82.5 Family history of asthma and other chronic lower respiratory diseases; Z90.81 Acquired absence of spleen; Z79.82 Long term (current) use of aspirin; Z79.899 Other long term (current) drug therapy; Z68.37 Body mass index [BMI] 37.0-37.9, adult

== ENCOUNTER 2021-01-27 17:31 | Inpatient (IN) | payer OTHER ==
[~2021-01-27] VITALS: Ht 177.8 cm; Wt 109.8 kg
[2021-01-27 17:31] VITALS: BP 202/86
[~2021-01-27 17:31] MED LIST changes: +AMARYL4 MG PO; +AMLODIPINE BESY10 MG PO; +BRILINTA90 M1 PO; +CEFTRIAXON2 GM/50 ML IV; +CEPHALEXIN500 M1 PO; +CLONIDINE HCL0.1 MG PO; +ELIQUIS5 M1 PO; +FISH OIL 1,0001 EAC6 PO; +FLUCONAZOLE200 MG PO; +FUROSEMIDE40 MG PO; +GLUCOPHAGE500 M1 PO; +HYDRALAZINE HC100 MG PO; +HYDROCODONE-AC1 EAC1 PO; +ISOSORBIDE MON120 MG PO; +METOPROLOL SUCC25 M2 PO; +METOPROLOL TART50 M1 PO; +NAFCILLIN2 GM IJ; +POTASSIUM CHLO20 ME4 PO; +PRILOSEC20 M1 PO; +XARE20MG PO; +XARELTO10 MG PO
[2021-01-27 17:50] LABS: BASO # 0.1 10*3/uL (0.0-0.1); BASO % 0.5 % (0.0-1.0); EOS # 0.3 10*3/uL (0.0-0.4); EOS % 2.2 % (1.0-4.0); HEMATOCRIT 46.2 % (42.0-52.0); LYMPH # 3.8 10*3/uL (1.3-4.4); LYMPH % 32.2 % (27.0-41.0); MEAN CELL VOLUME 96.7 fl (80.0-94.0); MEAN CORPUSCULAR HGB 32.4 pg (27.0-31.0); MEAN CORPUSCULAR HGB CONC 33.5 g/dl (33.0-37.0); MEAN PLATELET VOLUME 12.3 fl (9.6-12.3); MONO # 1.1 10*3/uL (0.1-1.0); MONO % 8.9 % (3.0-9.0); NEUT # 6.6 10*3/uL (2.3-7.9); NEUT % 55.7 % (47.0-73.0); PLATELET COUNT AUTOMATED 349 10*3/uL (130-400); RED BLOOD COUNT 4.78 10*6/uL (4.50-5.90); RED CELL DISTRI WIDTH 13.5 % (0-14.5); WHITE BLOOD COUNT 11.8 10*3/uL (4.8-10.8)
[2021-01-27 18:04] LABS: ACT PARTIAL THROMBO TIME 30.4 SECONDS (20.0-32.1)
[2021-01-27 18:16] LABS: ALKALINE PHOSPHATASE 133 U/L (45-117); BUN 26 mg/dl (7-24); CHLORIDE 107 mmol/L (98-107); POTASSIUM 4.1 mmol/L (3.5-5.1); SGOT/AST 21 IU/L (3-35); SGPT/ALT 42 U/L (12-78); SODIUM 139 mmol/L (136-145); TOTAL PROTEIN 7.6 gm/dL (6.4-8.2)
[2021-01-27 18:17] LABS: TROPONIN I < 0.015 ng/ml (<0.045)
[2021-01-27 18:39] VITALS: BP 220/85
[2021-01-27 19:52] VITALS: BP 234/97
[2021-01-27 21:30] VITALS: BP 206/92
[2021-01-27 22:50] VITALS: BP 216/82
[2021-01-27 23:30] VITALS: BP 170/94
[2021-01-28] VITALS (12 sets, daily range): BP systolic 156–204; BP diastolic 75–105
[2021-01-28 06:05] LABS: ALBUMIN 3.1 gm/dl (3.1-4.5); ALKALINE PHOSPHATASE 125 U/L (45-117); BUN 20 mg/dl (7-24); CHLORIDE 108 mmol/L (98-107); CHOLESTEROL 165 mg/dL (<200); CREATININE 1.39 mg/dL (0.70-1.30); FREE T4 1.06 ng/dl (0.76-1.46); LDL CHOLESTEROL 63 mg/dL (9-159); POTASSIUM 3.8 mmol/L (3.5-5.1); SGOT/AST 26 IU/L (3-35); SGPT/ALT 36 U/L (12-78); SODIUM 138 mmol/L (136-145); TOTAL PROTEIN 7.6 gm/dL (6.4-8.2); TRIGLYCERIDES 322 mg/dl (<150)
[2021-01-28 06:07] LABS: BASO % 0.3 % (0.0-1.0); EOS # 0.2 10*3/uL (0.0-0.4); EOS % 1.8 % (1.0-4.0); HEMATOCRIT 47.6 % (42.0-52.0); LYMPH # 3.2 10*3/uL (1.3-4.4); LYMPH % 24.8 % (27.0-41.0); MEAN CELL VOLUME 96.2 fl (80.0-94.0); MEAN CORPUSCULAR HGB 32.1 pg (27.0-31.0); MEAN CORPUSCULAR HGB CONC 33.4 g/dl (33.0-37.0); MEAN PLATELET VOLUME 12.8 fl (9.6-12.3); MONO # 1.2 10*3/uL (0.1-1.0); MONO % 9.5 % (3.0-9.0); NEUT # 8.2 10*3/uL (2.3-7.9); NEUT % 63.3 % (47.0-73.0); PLATELET COUNT AUTOMATED 370 10*3/uL (130-400); RED BLOOD COUNT 4.95 10*6/uL (4.50-5.90); RED CELL DISTRI WIDTH 13.4 % (0-14.5)
[2021-01-28 06:41] LABS: ACT PARTIAL THROMBO TIME 32.5 SECONDS (20.0-32.1)
[2021-01-29 05:41] LABS: CREATININE 1.54 mg/dL (0.70-1.30); POTASSIUM 4.2 mmol/L (3.5-5.1)
[2021-01-29 06:18] LABS: BASO # 0.1 10*3/uL (0.0-0.1); BASO % 0.5 % (0.0-1.0); EOS # 0.3 10*3/uL (0.0-0.4); EOS % 2.6 % (1.0-4.0); HEMATOCRIT 44.8 % (42.0-52.0); LYMPH # 3.1 10*3/uL (1.3-4.4); LYMPH % 30.8 % (27.0-41.0); MEAN CELL VOLUME 97.8 fl (80.0-94.0); MEAN CORPUSCULAR HGB 32.3 pg (27.0-31.0); MEAN PLATELET VOLUME 12.8 fl (9.6-12.3); MONO # 1.2 10*3/uL (0.1-1.0); MONO % 11.3 % (3.0-9.0); NEUT # 5.5 10*3/uL (2.3-7.9); NEUT % 54.4 % (47.0-73.0); PLATELET COUNT AUTOMATED 333 10*3/uL (130-400); RED BLOOD COUNT 4.58 10*6/uL (4.50-5.90); RED CELL DISTRI WIDTH 13.7 % (0-14.5); WHITE BLOOD COUNT 10.2 10*3/uL (4.8-10.8)
[2021-01-29 10:22] VITALS: BP 155/79
[2021-01-29 11:22] VITALS: BP 164/91
[2021-01-29 17:38] VITALS: BP 195/94
[2021-01-29] MEDS ORDERED: METOPROLOL SUCC50 M1 PO (17:49)
[2021-01-29] MEDS ORDERED: AMLODIPINE BESYL5 MG PO (17:49)
== END 2021-01-29 19:21 | disposition home or self-care (01) | DRG 280 ==
LOC: ED 17:31 → EDHOLD 18:33 → 4E 01-29 16:34 → EDHOLD 01-29 19:21
PROVIDERS: Emergency Medicine; Internal Medicine; Physical Therapist; ADMIT Internal Medicine; ATTEND Internal Medicine
PROC: 4A12XM4 Monitoring of Cardiac Stress, External Approach (ICD-10-PCS; principal; 2021-01-29)
PROC: 3E033HZ Introduction of Radioactive Substance into Peripheral Vein, Percutaneous Approach (ICD-10-PCS; 2021-01-29)
DX: I21.4 Non-ST elevation (NSTEMI) myocardial infarction (principal); N17.0 Acute kidney failure with tubular necrosis; I16.1 Hypertensive emergency; E44.0 Moderate protein-calorie malnutrition; I48.92 Unspecified atrial flutter; I50.22 Chronic systolic (congestive) heart failure; I13.0 Hypertensive heart and chronic kidney disease with heart failure and stage 1 through stage 4 chronic kidney disease, or unspecified chronic kidney disease; N18.30 Chronic kidney disease, stage 3 unspecified; E11.22 Type 2 diabetes mellitus with diabetic chronic kidney disease; E11.65 Type 2 diabetes mellitus with hyperglycemia; Z79.4 Long term (current) use of insulin; I95.9 Hypotension, unspecified; E78.1 Pure hyperglyceridemia; D64.9 Anemia, unspecified; Z95.5 Presence of coronary angioplasty implant and graft; Z82.5 Family history of asthma and other chronic lower respiratory diseases; Z95.1 Presence of aortocoronary bypass graft

== ENCOUNTER → 2021-03-18 | Outpatient (CLI) | payer MEDICARE | END | disposition home or self-care (01) | LOC: CT 14:00 | PROVIDERS: ATTEND Internal Medicine Critical Care Medicine | DX: J84.10 Pulmonary fibrosis, unspecified (principal); R91.8 Other nonspecific abnormal finding of lung field; K80.20 Calculus of gallbladder without cholecystitis without obstruction; M47.814 Spondylosis without myelopathy or radiculopathy, thoracic region; M47.816 Spondylosis without myelopathy or radiculopathy, lumbar region ==

== ENCOUNTER → 2021-05-11 | Outpatient (CLI) | payer OTHER | END | disposition home or self-care (01) | LOC: CARD 08:12 | PROVIDERS: ATTEND Internal Medicine Cardiovascular Disease | DX: I08.0 Rheumatic disorders of both mitral and aortic valves (principal) ==

== ENCOUNTER 2021-11-03 17:35 | Emergency (ER) | payer OTHER ==
[~2021-11-03] VITALS: Ht 175.2 cm; Wt 113.4 kg
[2021-11-03 20:03] VITALS: BP 147/100
[2021-11-03] MEDS ORDERED: ZOFRAN4 MG PO (22:36)
== END 2021-11-03 22:49 | disposition home or self-care (01) ==
LOC: ED 17:35
DX: R19.7 Diarrhea, unspecified (principal); Z79.899 Other long term (current) drug therapy; Z98.890 Other specified postprocedural states

== ENCOUNTER 2022-04-29 11:34 | Emergency (ER) | payer OTHER ==
[~2022-04-29] VITALS: Ht 177.8 cm; Wt 113.4 kg
[~2022-04-29 11:34] MED LIST changes: +ZOFRAN4 MG PO
[2022-04-29 12:15] VITALS: BP 146/70
== END 2022-04-29 15:34 | disposition left against medical advice (07) ==
LOC: ED 11:34
DX: R42 Dizziness and giddiness (principal); Z53.21 Procedure and treatment not carried out due to patient leaving prior to being seen by health care provider

== ENCOUNTER → 2022-09-21 | Outpatient (CLI) | payer OTHER | END | disposition home or self-care (01) | LOC: CARD 14:58 | PROVIDERS: ATTEND Internal Medicine Cardiovascular Disease | DX: I51.7 Cardiomegaly (principal); R06.09 Other forms of dyspnea ==

== ENCOUNTER 2022-11-06 10:03 | Emergency (ER) | payer OTHER ==
[~2022-11-06] VITALS: Wt 115.7 kg
[2022-11-06 10:07] VITALS: BP 171/63
[2022-11-06 10:24] LABS: BASO # 0.1 10*3/uL (0.0-0.1); BASO % 0.6 % (0.0-1.0); EOS # 0.3 10*3/uL (0.0-0.4); EOS % 2.5 % (1.0-4.0); HEMATOCRIT 40.3 % (42.0-52.0); LYMPH # 3.1 10*3/uL (1.3-4.4); LYMPH % 27.5 % (27.0-41.0); MEAN CELL VOLUME 92.9 fl (80.0-94.0); MEAN CORPUSCULAR HGB 30.4 pg (27.0-31.0); MEAN CORPUSCULAR HGB CONC 32.8 g/dl (33.0-37.0); MEAN PLATELET VOLUME 11.6 fl (9.6-12.3); MONO % 8.6 % (3.0-9.0); NEUT # 6.7 10*3/uL (2.3-7.9); NEUT % 60.2 % (47.0-73.0); PLATELET COUNT AUTOMATED 397 10*3/uL (130-400); RED BLOOD COUNT 4.34 10*6/uL (4.50-5.90); RED CELL DISTRI WIDTH 16.9 % (0-14.5); WHITE BLOOD COUNT 11.2 10*3/uL (4.8-10.8)
[2022-11-06] MEDS ORDERED: NEURONTIN300 MG PO (10:30)
[2022-11-06] MEDS ORDERED: CLOPIDOGREL75 MG PO (10:31)
[2022-11-06] MEDS ORDERED: ISOSORBIDE MON120 MG PO (10:31)
[2022-11-06] MEDS ORDERED: PANTOPRAZOLE SO40 MG PO (10:32)
[2022-11-06] MEDS ORDERED: AMLODIPINE BESYL5 MG PO (10:32)
[2022-11-06] MEDS ORDERED: TOPROL XL25 MG PO (10:32)
[2022-11-06] MEDS ORDERED: NOVOLOG FL100 UNIT/2 SQ (10:33)
[2022-11-06] MEDS ORDERED: OZEMPIC1 MG/0.71 SQ (10:33)
[2022-11-06] MEDS ORDERED: Clopidogrel75 MG PO (10:34)
[2022-11-06] MEDS ORDERED: INSULIN GL100 UNIT/5 SC (10:34)
[2022-11-06] MEDS ORDERED: TRAZODONE50 MG PO (10:35)
[2022-11-06] MEDS ORDERED: ELIQUIS5 M1 PO (10:35)
[2022-11-06] MEDS ORDERED: SERTRALINE HYD100 MG PO (10:35)
[2022-11-06 10:36] LABS: ACT PARTIAL THROMBO TIME 33.2 SECONDS (20.0-32.1); INTERNATIONAL NORM RATIO 1.1 (2.0-3.5)
[2022-11-06] MEDS ORDERED: CLONIDINE HCL0.1 MG PO (10:36)
[2022-11-06] MEDS ORDERED: LIPITOR80 MG PO (10:36)
[2022-11-06 10:44] LABS: POTASSIUM 3.8 mmol/L (3.4-5.1); TOTAL PROTEIN 6.7 gm/dL (6.0-8.0)
[2022-11-06 11:28] LABS: BILIRUBIN Negative (Negative); BLOOD 1+ (Negative); CLARITY Clear (Clear); COLOR Yellow (Yellow); GLUCOSE 3+ (Negative); KETONE Negative (Negative); LEUKO ESTERASE Negative (Negative); NITRITE Negative (Negative); SPECIFIC GRAVITY 1.025 (1.001-1.030)
[2022-11-06 11:44] LABS: BACTERIA 1+; RBC 0-2 rbc/hpf (0-2)
[2022-11-06] MEDS ORDERED: CIPRO500 MG PO (12:48)
== END 2022-11-06 12:47 | disposition home or self-care (01) ==
LOC: ED 10:03
PROVIDERS: Internal Medicine
DX: N39.0 Urinary tract infection, site not specified (principal); I25.10 Atherosclerotic heart disease of native coronary artery without angina pectoris; E11.9 Type 2 diabetes mellitus without complications; I10 Essential (primary) hypertension; I25.2 Old myocardial infarction; Z98.890 Other specified postprocedural states

== ENCOUNTER → 2022-11-24 | Outpatient (CLI) | payer OTHER ==
[~2022-11-24] MED LIST changes: +CIPRO500 MG PO; +CLOPIDOGREL75 MG PO; +Clopidogrel75 MG PO; +INSULIN GL100 UNIT/5 SC; +NEURONTIN300 MG PO; +NOVOLOG FL100 UNIT/2 SQ; +OZEMPIC1 MG/0.71 SQ; +PANTOPRAZOLE SO40 MG PO; +TOPROL XL25 MG PO; +TRAZODONE50 MG PO
== END | disposition home or self-care (01) ==
LOC: CARD 01:25
PROVIDERS: ATTEND Internal Medicine Cardiovascular Disease
DX: I20.8 Other forms of angina pectoris (principal)

== ENCOUNTER 2023-08-10 07:45 | Inpatient (IN) | payer OTHER, MEDICARE ==
[2023-08-10] VITALS (8 sets, daily range): BP systolic 85–173; BP diastolic 52–87
[~2023-08-10] VITALS: Ht 1798 cm; Wt 98.0 kg
[~2023-08-10 07:45] MED LIST changes: +CARAFATE1 G1 PO; +COZAAR25 M1 PO; +PANTOPRAZOLE SO20 MG PO
[2023-08-10] MEDS ORDERED: Metoclopramide Hydrochloride 10 MG/2 ML AMP IV ONE (07:55)
[2023-08-10] MEDS ORDERED: SODIUM CHLORIDE 0.9% 1,000 ML IV ONE ×4 (07:55→09:00)
[2023-08-10] MEDS ORDERED: diphenhydrAMINE hydrochloride 50 MG/ML VIAL IV ONE (07:55)
[2023-08-10 08:14] LABS: HEMATOCRIT 45.1 % (42.0-52.0); MEAN CELL VOLUME 95.8 fl (80.0-94.0); MEAN CORPUSCULAR HGB 30.8 pg (27.0-31.0); MEAN CORPUSCULAR HGB CONC 32.2 g/dl (33.0-37.0); MEAN PLATELET VOLUME 10.7 fl (9.6-12.3); PLATELET COUNT AUTOMATED 438 10*3/uL (130-400); RED BLOOD COUNT 4.71 10*6/uL (4.50-5.90); RED CELL DISTRI WIDTH 18.1 % (0-14.5); WHITE BLOOD COUNT 11.2 10*3/uL (4.8-10.8)
[2023-08-10 08:16] LABS: MANUAL DIFF REFLEX YES
[2023-08-10 08:23] LABS: ACT PARTIAL THROMBO TIME 32.5 SECONDS (20.0-32.1)
[2023-08-10] MEDS ORDERED: Metoprolol Tartrate 5 MG/5 ML VIAL IV ONE (08:30)
[2023-08-10 08:34] LABS: ACANTHOCYTES FEW; ATYPICAL LYMPHS 1 % (0-0); BURR CELLS FEW; PLATELET SUFFICIENCY HIGH (NORMAL); POLYCHROMASIA SLIGHT; SCHISTOCYTES FEW; TARGET CELLS FEW; TOTAL CELLS COUNTED 100 #CELLS
[2023-08-10 08:35] LABS: HOWELL-JOLLY BODIES FEW; OVALOCYTES FEW
[2023-08-10 08:38] LABS: ALKALINE PHOSPHATASE 165 U/L (46-116); BUN 10 mg/dl (9-23); CHLORIDE 103 mmol/L (98-107); LIPASE 32 U/L (12-53); POTASSIUM 3.9 mmol/L (3.4-5.1); SGPT/ALT 42 U/L (5-49)
[2023-08-10] MEDS ORDERED: Ceftriaxone Sodium 1 GM/10 ML SYR IV ONE (09:40)
[2023-08-10] MEDS ORDERED: Diltiazem Hydrochloride 25 MG/5 ML VIAL IV ONE (09:55)
[2023-08-10] MEDS ORDERED: BISACODYL 5 MG TAB PO PRN (11:30)
[2023-08-10] MEDS ORDERED: ACETAMINOPHEN 325 MG TAB PO PRN (11:30)
[2023-08-10] MEDS ORDERED: Ondansetron Hydrochloride 4 MG/2 ML VIAL IV PRN (11:30)
[2023-08-10] MEDS ORDERED: DEXTROSE 10 % IN WATER 250 ML IV PRN (11:40)
[2023-08-10 11:55] LABS: COLOR Yellow (Yellow)
[2023-08-10 11:56] LABS: BILIRUBIN Negative (Negative); BLOOD Trace-Intact (Negative); CLARITY Clear (Clear); GLUCOSE 1+ (Negative); KETONE Negative (Negative); LEUKO ESTERASE Negative (Negative); NITRITE Negative (Negative); PH 7.5 (4.5-8.0); RBC 0-2 rbc/hpf (0-2); UROBILINOGEN 0.2 E.U./dl (0.0-1.0)
[2023-08-10] MEDS ORDERED: ISOSORBIDE MONONITRATE 60 MG TAB PO SCH (13:25)
[2023-08-10] MEDS ORDERED: INSULIN LISPRO 1 UNIT/0.01 ML SQ SCH (16:30)
[2023-08-10] MEDS ORDERED: METOPROLOL SUCCINATE XR 50 MG TAB PO SCH ×2 (22:00)
[2023-08-10] MEDS ORDERED: SUCRALFATE 1 GM TAB PO SCH (22:00)
[2023-08-10] MEDS ORDERED: APIXABAN 5 MG TAB PO SCH (22:00)
[2023-08-11] VITALS: BP 155/71
[2023-08-11] MEDS ORDERED: Pantoprazole Sodium 20 MG TAB PO SCH (06:00)
[2023-08-11 06:29] LABS: BASO # 0.1 10*3/uL (0.0-0.1); BASO % 0.6 % (0.0-1.0); EOS # 0.3 10*3/uL (0.0-0.4); EOS % 2.9 % (1.0-4.0); HEMATOCRIT 38.2 % (42.0-52.0); LYMPH # 4.8 10*3/uL (1.3-4.4); LYMPH % 44.7 % (27.0-41.0); MEAN CELL VOLUME 93.9 fl (80.0-94.0); MEAN PLATELET VOLUME 11.2 fl (9.6-12.3); MONO # 1.2 10*3/uL (0.1-1.0); MONO % 11.1 % (3.0-9.0); NEUT # 4.4 10*3/uL (2.3-7.9); NEUT % 40.2 % (47.0-73.0); PLATELET COUNT AUTOMATED 381 10*3/uL (130-400); RED BLOOD COUNT 4.07 10*6/uL (4.50-5.90); RED CELL DISTRI WIDTH 17.9 % (0-14.5); WHITE BLOOD COUNT 10.8 10*3/uL (4.8-10.8)
[2023-08-11 07:18] LABS: BUN 9 mg/dl (9-23); CHLORIDE 105 mmol/L (98-107); POTASSIUM 3.7 mmol/L (3.4-5.1)
[2023-08-11 08:00] VITALS: BP 170/77
[2023-08-11] MEDS ORDERED: ATORVASTATIN CALCIUM 80 MG TAB PO SCH (10:00)
[2023-08-11] MEDS ORDERED: Ceftriaxone Sodium 1 GM,IV 1 EA in SYRINGE INFUSION 10 ML IV SCH (10:00)
[2023-08-11 11:43] VITALS: BP 156/67
[2023-08-11] MEDS ORDERED: VITAMIN D325 MC1 PO (14:18)
[2023-08-11] MEDS ORDERED: B-12500 MC1 PO (14:19)
[2023-08-11 16:00] VITALS: BP 178/70
[2023-08-11] MEDS ORDERED: Losartan Potassium 25 MG TAB PO SCH (16:21)
[2023-08-11] MEDS ORDERED: amLODIPine besylate 5 MG TAB PO SCH (16:21)
[2023-08-11 20:00] VITALS: BP 150/71
[2023-08-12] VITALS: BP 157/75
[2023-08-12 06:43] LABS: MEAN CELL VOLUME 94.4 fl (80.0-94.0); MEAN CORPUSCULAR HGB 31.1 pg (27.0-31.0); MEAN PLATELET VOLUME 11.6 fl (9.6-12.3); PLATELET COUNT AUTOMATED 389 10*3/uL (130-400); RED BLOOD COUNT 3.92 10*6/uL (4.50-5.90); RED CELL DISTRI WIDTH 18.1 % (0-14.5); WHITE BLOOD COUNT 12.1 10*3/uL (4.8-10.8)
[2023-08-12 06:48] LABS: MANUAL DIFF REFLEX YES
[2023-08-12 07:01] LABS: CHLORIDE 105 mmol/L (98-107); POTASSIUM 3.3 mmol/L (3.4-5.1)
[2023-08-12 07:04] LABS: BUN < 5 mg/dl (9-23)
[2023-08-12 07:28] LABS: TOTAL CELLS COUNTED 100 #CELLS
[2023-08-12 07:29] LABS: PLATELET SUFFICIENCY NORMAL (NORMAL)
[2023-08-12 08:00] VITALS: BP 170/90
[2023-08-12] MEDS ORDERED: Clopidogrel Hydrogen Sulfate 75 MG TAB PO SCH (10:00)
[2023-08-12] MEDS ORDERED: ISOSORBIDE MONONITRATE 60 MG TAB PO SCH (10:00)
[2023-08-12] MEDS ORDERED: Sertraline Hydrochloride 50 MG TAB PO SCH (10:00)
[2023-08-12 12:00] VITALS: BP 171/84
== END 2023-08-12 15:50 | disposition home health service (06) | DRG 392 ==
LOC: ED 07:45 → 4E 10:05 → EDHOLD 10:05 → 4E 13:49
PROVIDERS: Emergency Medicine; Registered Nurse; Student in an Organized Health Care Education/Training Program; ADMIT Internal Medicine; ATTEND Internal Medicine
DX: K52.9 Noninfective gastroenteritis and colitis, unspecified (principal); E44.0 Moderate protein-calorie malnutrition; I48.92 Unspecified atrial flutter; N18.30 Chronic kidney disease, stage 3 unspecified; E11.22 Type 2 diabetes mellitus with diabetic chronic kidney disease; R53.81 Other malaise; I95.9 Hypotension, unspecified; E86.1 Hypovolemia; I12.9 Hypertensive chronic kidney disease with stage 1 through stage 4 chronic kidney disease, or unspecified chronic kidney disease; I48.0 Paroxysmal atrial fibrillation; S91.301A Unspecified open wound, right foot, initial encounter; X58.XXXA Exposure to other specified factors, initial encounter; Y93.89 Activity, other specified; Y92.89 Other specified places as the place of occurrence of the external cause; Y99.9 Unspecified external cause status; Z95.5 Presence of coronary angioplasty implant and graft; Z90.81 Acquired absence of spleen; Z83.6 Family history of other diseases of the respiratory system; I25.2 Old myocardial infarction; Z95.1 Presence of aortocoronary bypass graft; Z68.30 Body mass index [BMI] 30.0-30.9, adult

== ENCOUNTER 2024-07-29 12:23 | Emergency (ER) | payer MEDICARE ==
[~2024-07-29] VITALS: Wt 122.0 kg
[~2024-07-29 12:23] MED LIST changes: +B-12500 MC1 PO; +VITAMIN D325 MC1 PO
[2024-07-29 12:53] VITALS: BP 164/82
[2024-07-29 13:02] LABS: BASO # 0.1 10*3/uL (0.0-0.1); BASO % 0.6 % (0.0-1.0); EOS # 0.4 10*3/uL (0.0-0.4); EOS % 3.7 % (1.0-4.0); HEMATOCRIT 42.8 % (42.0-52.0); MEAN CELL VOLUME 99.5 fl (80.0-94.0); MEAN CORPUSCULAR HGB 31.6 pg (27.0-31.0); MEAN CORPUSCULAR HGB CONC 31.8 g/dl (33.0-37.0); MEAN PLATELET VOLUME 12.1 fl (9.6-12.3); MONO # 0.7 10*3/uL (0.1-1.0); NEUT # 5.7 10*3/uL (2.3-7.9); NEUT % 54.7 % (47.0-73.0); PLATELET COUNT AUTOMATED 308 10*3/uL (130-400); RED CELL DISTRI WIDTH 15.2 % (0-14.5); WHITE BLOOD COUNT 10.5 10*3/uL (4.8-10.8)
[2024-07-29] MEDS ORDERED: VITAMIN D325 MCG PO (13:09)
[2024-07-29] MEDS ORDERED: B-12 DOTS500 MCG PO (13:10)
[2024-07-29] MEDS ORDERED: 'CLONIDINE0.1 MG PO (13:10)
[2024-07-29] MEDS ORDERED: INSULIN AS100 UNIT/2 SQ (13:11)
[2024-07-29] MEDS ORDERED: GABAPENTIN100 M2 PO (13:11)
[2024-07-29] MEDS ORDERED: LANTUS100 UNIT/1 SC (13:12)
[2024-07-29] MEDS ORDERED: GLUCOSE PO (13:12)
[2024-07-29 13:14] LABS: ACT PARTIAL THROMBO TIME 31.2 SECONDS (20.0-32.1)
[2024-07-29] MEDS ORDERED: TOPROL XL50 M1 PO (13:14)
[2024-07-29] MEDS ORDERED: OZEMPIC2 MG/0.71 SQ (13:15)
[2024-07-29] MEDS ORDERED: SERTRALINE HYD100 MG PO (13:15)
[2024-07-29] MEDS ORDERED: TRAZODONE100 MG PO (13:17)
[2024-07-29] MEDS ORDERED: CARAFATE1 G1 PO (13:17)
[2024-07-29 13:24] LABS: POTASSIUM 4.4 mmol/L (3.4-5.1); TOTAL PROTEIN 6.7 gm/dL (6.0-8.0)
[2024-07-29] MEDS ORDERED: SODIUM CHLORIDE 0.9% 1,000 ML IV ONE (14:45)
[2024-07-29] MEDS ORDERED: INSULIN REGULAR, HUMAN 1 UNIT/0.01 ML IV ONE (14:45)
[2024-07-29] MEDS ORDERED: CEFDINIR 300 MG CAP PO ONE (15:20)
[2024-07-29] MEDS ORDERED: Doxycycline Hyclate 100 MG TAB PO ONE (15:20)
[2024-07-29] MEDS ORDERED: OMNICEF300 MG PO (15:37)
[2024-07-29] MEDS ORDERED: VIBRAMYCIN100 MG PO (15:37)
== END 2024-07-29 15:47 | disposition home or self-care (01) ==
LOC: ED 12:23
PROVIDERS: Internal Medicine
DX: J18.9 Pneumonia, unspecified organism (principal); E11.9 Type 2 diabetes mellitus without complications; I11.0 Hypertensive heart disease with heart failure; I50.9 Heart failure, unspecified; I25.10 Atherosclerotic heart disease of native coronary artery without angina pectoris; Z95.5 Presence of coronary angioplasty implant and graft; Z79.899 Other long term (current) drug therapy; Z79.4 Long term (current) use of insulin; Z98.890 Other specified postprocedural states

== ENCOUNTER 2025-04-22 12:18 | Inpatient (IN) | payer OTHER ==
[~2025-04-22] VITALS: Ht 175.3 cm; Wt 103.0 kg
[~2025-04-22 12:18] MED LIST changes: +'CLONIDINE0.1 MG PO; +B-12 DOTS500 MCG PO; +GABAPENTIN100 M2 PO; +GLUCOSE PO; +INSULIN AS100 UNIT/2 SQ; +LANTUS100 UNIT/1 SC; +OMNICEF300 MG PO; +OZEMPIC2 MG/0.71 SQ; +TOPROL XL50 M1 PO; +TRAZODONE100 MG PO; +VIBRAMYCIN100 MG PO; +VITAMIN D325 MCG PO
[2025-04-22 12:26] VITALS: BP 131/58
[2025-04-22] MEDS ORDERED: SODIUM CHLORIDE 0.9% 500 ML IV ONE (12:55)
[2025-04-22 13:09] LABS: BASO # 0.1 10*3/uL (0.0-0.1); BASO % 0.4 % (0.0-1.0); EOS # 0.2 10*3/uL (0.0-0.4); EOS % 1.3 % (1.0-4.0); MEAN CELL VOLUME 98.9 fl (80.0-94.0); MEAN CORPUSCULAR HGB 32.0 pg (27.0-31.0); MEAN PLATELET VOLUME 11.8 fl (9.6-12.3); MONO # 1.1 10*3/uL (0.1-1.0); MONO % 9.1 % (3.0-9.0); NEUT # 6.5 10*3/uL (2.3-7.9); NEUT % 53.7 % (47.0-73.0); NUCLEATED RED BLOOD CELL 0.0 10*3/uL (0.0-0.0); NUCLEATED RED BLOOD CELL 0.2 % (0.0-0.0); PLATELET COUNT AUTOMATED 284 10*3/uL (130-400); RED CELL DISTRI WIDTH 15.9 % (0-14.5)
[2025-04-22 13:45] LABS: BUN 36.0 mg/dl (9-23); SGPT/ALT 38.0 U/L (5-49)
[2025-04-22 15:03] VITALS: BP 156/64
[2025-04-22 15:33] LABS: BILIRUBIN Negative (Negative); BLOOD 2+ (Negative); CLARITY Cloudy (Clear); COLOR Yellow (Yellow); KETONE Trace (Negative); LEUKO ESTERASE 2+ (Negative); NITRITE Negative (Negative); PH 5.5 (4.5-8.0); SPECIFIC GRAVITY 1.020 (1.001-1.030); UROBILINOGEN 0.2 E.U./dl (0.0-1.0)
[2025-04-22 15:40] LABS: BACTERIA 3+; WBC TNTC wbc/hpf (0-5)
[2025-04-22 16:00] VITALS: BP 188/79
[2025-04-22] MEDS ORDERED: ACETAMINOPHEN 650 MG SUPP R PRN (16:15)
[2025-04-22] MEDS ORDERED: BISACODYL 10 MG SUPP R PRN (16:15)
[2025-04-22] MEDS ORDERED: ACETAMINOPHEN 325 MG TAB PO PRN (16:15)
[2025-04-22] MEDS ORDERED: Acetaminophen/Hydrocodone 5 MG/325 MG TABLET PO PRN (16:15)
[2025-04-22] MEDS ORDERED: SODIUM CHLORIDE 0.9% 1,000 ML IV SCH (16:15)
[2025-04-22] MEDS ORDERED: Ondansetron Hydrochloride 4 MG/2 ML VIAL IV PRN (16:15)
[2025-04-22] MEDS ORDERED: BISACODYL 5 MG TAB PO PRN (16:15)
[2025-04-22] MEDS ORDERED: DEXTROSE 50% 25 GM/50 ML VIAL IV PRN (17:05)
[2025-04-22 18:37] VITALS: BP 163/55
[2025-04-22 20:48] VITALS: BP 162/54
[2025-04-22] MEDS ORDERED: INSULIN LISPRO 1 UNIT/0.01 ML SQ SCH (22:00)
[2025-04-22] MEDS ORDERED: APIXABAN 5 MG TAB PO SCH (22:00)
[2025-04-22] MEDS ORDERED: METOPROLOL SUCCINATE XR 50 MG TAB PO SCH (22:05)
[2025-04-22] MEDS ORDERED: GABAPENTIN 100 MG CAP PO SCH (22:05)
[2025-04-22] MEDS ORDERED: FOAM BANDAGE 5X5 T ONE (23:26)
[2025-04-23] VITALS (9 sets, daily range): BP systolic 127–180; BP diastolic 50–72
[2025-04-23] MEDS ORDERED: hydrALAZINE hydrochloride 20 MG/ML VIAL IV ONE (02:00)
[2025-04-23 06:05] LABS: MEAN CELL VOLUME 97.9 fl (80.0-94.0); MEAN CORPUSCULAR HGB 32.3 pg (27.0-31.0); MEAN PLATELET VOLUME 12.5 fl (9.6-12.3); NUCLEATED RED BLOOD CELL 0.1 10*3/uL (0.0-0.0); NUCLEATED RED BLOOD CELL 0.3 % (0.0-0.0); PLATELET COUNT AUTOMATED 311 10*3/uL (130-400); RED CELL DISTRI WIDTH 15.9 % (0-14.5)
[2025-04-23 06:16] LABS: MANUAL DIFF REFLEX YES
[2025-04-23 06:26] LABS: BUN 28.0 mg/dl (9-23); LDL CHOLESTEROL 29.0 mg/dL (9-159); SGPT/ALT 45.0 U/L (5-49)
[2025-04-23 06:57] LABS: BASOPHILS 1 % (0-1)
[2025-04-23 06:58] LABS: PLATELET SUFFICIENCY NORMAL (NORMAL)
[2025-04-23 07:58] LABS: VITAMIN D, 25-HYDROXY 59.0 ng/mL (30-100)
[2025-04-23] MEDS ORDERED: Clopidogrel Hydrogen Sulfate 75 MG TAB PO SCH (10:00)
[2025-04-23] MEDS ORDERED: Insulin Glargine, Recombinan 1 UNIT/0.01 ML SC SCH ×2 (10:00→22:00)
[2025-04-23] MEDS ORDERED: ISOSORBIDE MONONITRATE 60 MG TAB PO SCH (10:00)
[2025-04-23] MEDS ORDERED: ATORVASTATIN CALCIUM 80 MG TAB PO SCH (10:00)
[2025-04-23] MEDS ORDERED: ZOLOFT100 MG PO (11:42)
[2025-04-23] MEDS ORDERED: NOVOLOG FL100 UNIT/2 SQ (11:43)
[2025-04-23] MEDS ORDERED: SODIUM CHLORIDE 0.9% 1,000 ML IV SCH (11:45)
[2025-04-23] MEDS ORDERED: NYSTATIN 15 GM BOT T SCH (22:00)
[2025-04-24] VITALS: BP 126/49
[2025-04-24 06:34] LABS: BASO # 0.1 10*3/uL (0.0-0.1); BASO % 0.6 % (0.0-1.0); EOS # 0.6 10*3/uL (0.0-0.4); EOS % 4.7 % (1.0-4.0); MEAN CELL VOLUME 98.8 fl (80.0-94.0); MEAN CORPUSCULAR HGB 31.7 pg (27.0-31.0); MEAN PLATELET VOLUME 12.3 fl (9.6-12.3); MONO # 1.4 10*3/uL (0.1-1.0); MONO % 10.5 % (3.0-9.0); NEUT # 6.3 10*3/uL (2.3-7.9); NEUT % 47.3 % (47.0-73.0); NUCLEATED RED BLOOD CELL 0.1 10*3/uL (0.0-0.0); NUCLEATED RED BLOOD CELL 0.4 % (0.0-0.0); PLATELET COUNT AUTOMATED 292 10*3/uL (130-400); RED CELL DISTRI WIDTH 16.2 % (0-14.5)
[2025-04-24 06:49] LABS: BUN 19.0 mg/dl (9-23)
[2025-04-24 08:00] VITALS: BP 119/85
[2025-04-24 12:00] VITALS: BP 141/52
[2025-04-24 16:00] VITALS: BP 154/70
[2025-04-24 20:00] VITALS: BP 169/69
[2025-04-24] MEDS ORDERED: Insulin Glargine, Recombinan 1 UNIT/0.01 ML SC SCH (22:00)
[2025-04-24 22:01] VITALS: BP 182/65
[2025-04-25] VITALS: BP 174/78
[2025-04-25 05:18] LABS: BUN 15.0 mg/dl (9-23)
[2025-04-25 06:12] LABS: BASO # 0.1 10*3/uL (0.0-0.1); BASO % 0.6 % (0.0-1.0); EOS # 0.7 10*3/uL (0.0-0.4); EOS % 5.6 % (1.0-4.0); MEAN CELL VOLUME 96.6 fl (80.0-94.0); MEAN CORPUSCULAR HGB 31.2 pg (27.0-31.0); MEAN PLATELET VOLUME 12.4 fl (9.6-12.3); MONO # 1.2 10*3/uL (0.1-1.0); MONO % 9.6 % (3.0-9.0); NEUT # 6.4 10*3/uL (2.3-7.9); NEUT % 51.2 % (47.0-73.0); NUCLEATED RED BLOOD CELL 0.1 10*3/uL (0.0-0.0); NUCLEATED RED BLOOD CELL 0.4 % (0.0-0.0); PLATELET COUNT AUTOMATED 312 10*3/uL (130-400); RED CELL DISTRI WIDTH 16.2 % (0-14.5)
[2025-04-25 08:00] VITALS: BP 188/79
[2025-04-25] MEDS ORDERED: AMLODIPINE BESYL5 MG PO (09:29)
[2025-04-25] MEDS ORDERED: 'CLONIDINE0.1 MG PO (09:29)
[2025-04-25] MEDS ORDERED: LANTUS100 UNIT/1 SC (09:29)
[2025-04-25] MEDS ORDERED: HYDROCODONE-AC1 EAC1 PO (09:29)
[2025-04-25] MEDS ORDERED: SERTRALINE HYDR50 MG PO (09:29)
[2025-04-25] MEDS ORDERED: GABAPENTIN100 M2 PO (09:29)
[2025-04-25 09:30] VITALS: BP 144/56
[2025-04-25] MEDS ORDERED: AMOXICILLIN500 M2 PO (09:33)
[2025-04-25] MEDS ORDERED: NYSTATIN CREAM15 GM T (09:51)
[2025-04-25] MEDS ORDERED: THERAHONEY T (09:51)
== END 2025-04-25 12:00 | DRG 682 ==
LOC: ED 12:18 → 4E 15:55 → EDHOLD 15:55 → 4E 19:49
PROVIDERS: Internal Medicine; Student in an Organized Health Care Education/Training Program; ADMIT Student in an Organized Health Care Education/Training Program; ATTEND Student in an Organized Health Care Education/Training Program
DX: N17.0 Acute kidney failure with tubular necrosis (principal); E43 Unspecified severe protein-calorie malnutrition; N30.00 Acute cystitis without hematuria; D64.9 Anemia, unspecified; R29.6 Repeated falls; I48.91 Unspecified atrial fibrillation; E11.22 Type 2 diabetes mellitus with diabetic chronic kidney disease; K57.30 Diverticulosis of large intestine without perforation or abscess without bleeding; B95.61 Methicillin susceptible Staphylococcus aureus infection as the cause of diseases classified elsewhere; I12.9 Hypertensive chronic kidney disease with stage 1 through stage 4 chronic kidney disease, or unspecified chronic kidney disease; K21.9 Gastro-esophageal reflux disease without esophagitis; D72.829 Elevated white blood cell count, unspecified; R74.01 Elevation of levels of liver transaminase levels; E11.65 Type 2 diabetes mellitus with hyperglycemia; E78.2 Mixed hyperlipidemia; I95.1 Orthostatic hypotension; E83.51 Hypocalcemia; S90.411A Abrasion, right great toe, initial encounter; N18.31 Chronic kidney disease, stage 3a; Z79.899 Other long term (current) drug therapy; Z79.01 Long term (current) use of anticoagulants; Z79.2 Long term (current) use of antibiotics; Z95.5 Presence of coronary angioplasty implant and graft; Z90.49 Acquired absence of other specified parts of digestive tract; Z90.81 Acquired absence of spleen; Z82.49 Family history of ischemic heart disease and other diseases of the circulatory system; I25.2 Old myocardial infarction; Z82.5 Family history of asthma and other chronic lower respiratory diseases; Z91.148 Patient's other noncompliance with medication regimen for other reason; Z79.4 Long term (current) use of insulin; Z80.6 Family history of leukemia; Z83.3 Family history of diabetes mellitus; Z80.8 Family history of malignant neoplasm of other organs or systems; X58.XXXA Exposure to other specified factors, initial encounter; Y93.89 Activity, other specified; Y92.89 Other specified places as the place of occurrence of the external cause; Y99.8 Other external cause status